=== PATIENT | female | born 1960 | race African-American/Black ===

== ENCOUNTER 2021-02-28 09:03 | Emergency (ER) | payer OTHER, MEDICAID ==
[~2021-02-28] VITALS: Ht 170.2 cm; Wt 145.1 kg
[~2021-02-28 09:03] MED LIST: ALPR1TAB2 PO; ALPR1TAB7 PO; APIX5TAB OR; ATOR10TA52 PO; CARI-277 PO; CLOP75TA28 PO; GABA300C10 PO; HYDR-531 PO; HYDR12.56 PO; HYDR200T36 PO; IPRAAER6 IN; LEVO175T66 PO; LISI-716 PO; OMEP20TA PO; POTA-220 PO; ZOLP5TAB PO
[2021-02-28 10:00] VITALS: BP 125/83
[2021-02-28] MEDS ORDERED: HYDROcodone-ACET 7.5/325MG TAB PO ONE (10:45)
== END 2021-02-28 10:57 | disposition home or self-care (01) ==
LOC: ER 09:03
DX: S83.91XA Sprain of unspecified site of right knee, initial encounter (principal); M17.11 Unilateral primary osteoarthritis, right knee; I11.0 Hypertensive heart disease with heart failure; I50.9 Heart failure, unspecified; I48.91 Unspecified atrial fibrillation; I25.10 Atherosclerotic heart disease of native coronary artery without angina pectoris; J44.9 Chronic obstructive pulmonary disease, unspecified; E78.5 Hyperlipidemia, unspecified; E03.9 Hypothyroidism, unspecified; F17.210 Nicotine dependence, cigarettes, uncomplicated; Z86.73 Personal history of transient ischemic attack (TIA), and cerebral infarction without residual deficits; Z90.49 Acquired absence of other specified parts of digestive tract; Z79.899 Other long term (current) drug therapy; Z88.8 Allergy status to other drugs, medicaments and biological substances; W01.0XXA Fall on same level from slipping, tripping and stumbling without subsequent striking against object, initial encounter; Y93.89 Activity, other specified; Y92.89 Other specified places as the place of occurrence of the external cause; Y99.8 Other external cause status
CPT/HCPCS: 73562

== ENCOUNTER 2021-11-23 12:36 | Inpatient (IN) | payer OTHER, MEDICAID ==
[~2021-11-23] VITALS: Ht 170.2 cm; Wt 138.6 kg
[2021-11-23 13:49] LABS: Hemoglobin 9.9 g/dL (12.2-16.2)
[2021-11-23 13:51] LABS: Hematocrit 30.6 % (36.0-46.0); Mean Corpuscular Hemoglobin 33.2 pg (28.0-32.0); Mean Corpuscular Hgb Conc. 32.4 g/dL (32.0-36.0); Mean Corpuscular Volume 102.5 fL (80.0-100.0); Red Blood Cells 2.99 10^6/uL (4.0-5.20); Red Cell Distribution Width 14.8 % (11.8-14.3)
[2021-11-23 13:55] LABS: White Blood Cell 1.9 10^3/uL (4.4-10.8)
[2021-11-23 13:56] LABS: Band Neutrophils % (manual) 0; Basophils % (manual) 0 (0.0-2.0); Blast Cells 0; Metamyelocytes % 0; Myelocytes % 0; Promyelocytes % 0; Reactive Lymphocytes 0
[2021-11-23 14:23] LABS: BUN/Creatinine Ratio 9.2; Calcium 8.7 mg/dL (8.5-10.1); Potassium 3.4 mmol/L (3.5-5.1)
[2021-11-23 14:25] LABS: Bilirubin, Total 0.2 mg/dL (0.2-1.0); Eosinophils % (manual) 4 (0-7); Lymphocytes % (manual) 32 (10.0-50.0); Monocytes % (manual) 12 (0-12); Total Protein 7.7 g/dL (6.4-8.2)
[2021-11-23] MEDS ORDERED: MORPHINE SULFATE 4 MG/ML SYR/VIAL IV ONE (15:30)
[2021-11-23] MEDS ORDERED: NITROGLYCERIN 0.4 MG SL TAB SL PRN (16:30)
[2021-11-23] MEDS ORDERED: MORPHINE SULFATE INJ 2 MG/ml SYRG IV PRN (16:30)
[2021-11-23] MEDS ORDERED: HYDROcodone-ACET 5/325MG TAB PO PRN (16:30)
[2021-11-23] MEDS: SODIUM CHLORIDE 0.9% 1,000 ML IV SCH (17:03)
[2021-11-23] MEDS: GABAPENTIN 300 MG CAP PO SCH (21:07)
[2021-11-23] MEDS: hydrOXYchloroQUINE SULFATE 200 MG TAB PO SCH (21:07)
[2021-11-23] MEDS: CARISOPRODOL 350 MG TAB PO SCH (21:08)
[2021-11-23 21:35] VITALS: BP 104/64
[2021-11-23] MEDS ORDERED: ALPRAZOLAM 1 MG PO SCH (22:00)
[2021-11-23] MEDS ORDERED: PATIENTS OWN MEDICATION (Atorvastatin Calcium 40 MG) PO SCH (22:00)
[2021-11-23] MEDS: MORPHINE SULFATE INJ 2 MG/ml SYRG IV PRN (22:02)
[2021-11-23 22:07] VITALS: BP 129/83
[2021-11-23] MEDS: ACETAMINOPHEN 325 MG TAB PO PRN (22:12)
[2021-11-24] MEDS: SODIUM CHLORIDE 0.9% 1,000 ML IV SCH ×3 (01:44→17:30)
[2021-11-24] MEDS: MORPHINE SULFATE INJ 2 MG/ml SYRG IV PRN ×3 (02:38→11:52)
[2021-11-24 05:13] VITALS: BP 105/62
[2021-11-24] MEDS: GABAPENTIN 300 MG CAP PO SCH ×3 (05:17→21:31)
[2021-11-24] MEDS: CARISOPRODOL 350 MG TAB PO SCH ×3 (05:17→21:31)
[2021-11-24 08:17] LABS: Basophils # (auto) 0 10 ^3/uL (0-0.2); Eosinophils # (auto) 0 10 ^3/uL (0-0.8); Hemoglobin 8.9 g/dL (12.2-16.2); Lymphocytes # (auto) 0.7 10 ^3/uL (0.4-5.4); Mean Corpuscular Hemoglobin 33.8 pg (28.0-32.0); Monocytes # (auto) 0.2 10 ^3/uL (0-1.3); Neutrophils # (auto) 1.1 10 ^3/uL (1.6-8.6); Nucleated Red Blood Cells % 0.2 %; Red Blood Cells 2.63 10^6/uL (4.0-5.20)
[2021-11-24 08:21] LABS: Basophils % (auto) 0.4 % (0.0-2.0); Eosinophils % (auto) 0.1 % (0.0-7.0); Hematocrit 27.2 % (36.0-46.0); Lymphocytes % (auto) 33.1 % (10.0-50.0); Mean Corpuscular Hgb Conc. 32.8 g/dL (32.0-36.0); Mean Corpuscular Volume 103.3 fL (80.0-100.0); Monocytes % (auto) 10.9 % (0.0-12.0); Neutrophils % (auto) 55.5 % (37.0-80.0)
[2021-11-24 08:40] VITALS: BP 96/55
[2021-11-24 09:10] LABS: Albumin 3.4 g/dL (3.4-5.0); BUN/Creatinine Ratio 9.3; Calcium 8.1 mg/dL (8.5-10.1); Potassium 3.4 mmol/L (3.5-5.1)
[2021-11-24 09:12] LABS: Bilirubin, Total 0.2 mg/dL (0.2-1.0)
[2021-11-24] MEDS: CLOPIDOGREL BISULFATE 75 MG TAB PO SCH (09:54)
[2021-11-24] MEDS: PANTOPRAZOLE 40 MG TAB PO SCH (09:55)
[2021-11-24] MEDS: APIXABAN 5 MG TAB PO SCH (09:55)
[2021-11-24] MEDS: LISINOPRIL 10 MG TAB PO SCH (09:56)
[2021-11-24] MEDS: hydrOXYchloroQUINE SULFATE 200 MG TAB PO SCH ×2 (09:57→21:31)
[2021-11-24] MEDS ORDERED: ENOXAPARIN SOD 40 MG/0.4 ML SYRINGE SC SCH ×2 (10:00)
[2021-11-24] MEDS ORDERED: PATIENTS OWN MEDICATION (Omeprazole (Gnp Omeprazole) 1 TAB) PO SCH (10:00)
[2021-11-24] MEDS ORDERED: PATIENTS OWN MEDICATION (Clopidogrel Bisulfate (Plavix) 75 MG) PO SCH (10:00)
[2021-11-24 12:12] VITALS: BP 104/64
[2021-11-24] MEDS: ONDANSETRON HCL 4 MG/2 ML VIAL IV PRN (13:48)
[2021-11-24] MEDS: cefTRIAXone 1GM/50ML D5W 50 ML IV SCH (15:07)
[2021-11-24] MEDS: AZITHROMYCIN 500MG/ 250ML 250 ML IV SCH (15:08)
[2021-11-24] MEDS: HYDROmorphone HCL 2 MG/ML VL/or syr IV PRN ×2 (15:09→20:34)
[2021-11-24 16:29] VITALS: BP 124/76
[2021-11-24] MEDS: ALPRAZolam 0.5 MG TAB PO SCH (21:30)
[2021-11-24] MEDS: ATORVASTATIN 20 MG TAB PO SCH (21:31)
[2021-11-24 22:00] VITALS: BP 118/74
[2021-11-25] MEDS: SODIUM CHLORIDE 0.9% 1,000 ML IV SCH ×4 (01:50→19:46)
[2021-11-25] MEDS: HYDROmorphone HCL 2 MG/ML VL/or syr IV PRN ×5 (04:44→20:34)
[2021-11-25 05:00] VITALS: BP 114/69
[2021-11-25] MEDS: CARISOPRODOL 350 MG TAB PO SCH ×3 (05:39→22:18)
[2021-11-25] MEDS: GABAPENTIN 300 MG CAP PO SCH ×3 (05:39→22:17)
[2021-11-25] MEDS: LEVOTHYROXINE SODIUM 50 MCG TAB PO SCH (07:23)
[2021-11-25] MEDS: cefTRIAXone 1GM/50ML D5W 50 ML IV SCH (08:24)
[2021-11-25 09:00] VITALS: BP 105/68
[2021-11-25] MEDS: AZITHROMYCIN 500MG/ 250ML 250 ML IV SCH (09:43)
[2021-11-25] MEDS: hydrOXYchloroQUINE SULFATE 200 MG TAB PO SCH ×2 (09:43→22:18)
[2021-11-25] MEDS: APIXABAN 5 MG TAB PO SCH (09:43)
[2021-11-25] MEDS: PANTOPRAZOLE 40 MG TAB PO SCH (09:44)
[2021-11-25] MEDS: CLOPIDOGREL BISULFATE 75 MG TAB PO SCH (09:44)
[2021-11-25] MEDS: LISINOPRIL 10 MG TAB PO SCH (09:46)
[2021-11-25] MEDS ORDERED: CYANOCOBALAMIN (B-12) 1000 MCG/1 ML VIAL SUBCUT ONE (11:15)
[2021-11-25 13:00] VITALS: BP 111/81
[2021-11-25] MEDS: ONDANSETRON HCL 4 MG/2 ML VIAL IV PRN (13:28)
[2021-11-25 17:00] VITALS: BP 127/86
[2021-11-25 20:00] VITALS: BP 105/68
[2021-11-25 22:00] VITALS: BP 118/74
[2021-11-25] MEDS: ATORVASTATIN 20 MG TAB PO SCH (22:17)
[2021-11-25] MEDS: ALPRAZolam 0.5 MG TAB PO SCH (22:18)
[2021-11-26] VITALS (7 sets, daily range): BP systolic 108–133; BP diastolic 69–87
[2021-11-26] MEDS: HYDROmorphone HCL 2 MG/ML VL/or syr IV PRN ×6 (00:40→21:14)
[2021-11-26] MEDS: CARISOPRODOL 350 MG TAB PO SCH ×3 (06:46→22:15)
[2021-11-26] MEDS: GABAPENTIN 300 MG CAP PO SCH ×3 (06:46→22:15)
[2021-11-26] MEDS: LEVOTHYROXINE SODIUM 50 MCG TAB PO SCH (06:47)
[2021-11-26] MEDS: CLOPIDOGREL BISULFATE 75 MG TAB PO SCH (10:14)
[2021-11-26] MEDS: LISINOPRIL 10 MG TAB PO SCH (10:15)
[2021-11-26] MEDS: PANTOPRAZOLE 40 MG TAB PO SCH (10:15)
[2021-11-26] MEDS: APIXABAN 5 MG TAB PO SCH (10:16)
[2021-11-26] MEDS: AZITHROMYCIN 500MG/ 250ML 250 ML IV SCH (10:16)
[2021-11-26] MEDS: hydrOXYchloroQUINE SULFATE 200 MG TAB PO SCH ×2 (10:16→22:15)
[2021-11-26] MEDS: cefTRIAXone 1GM/50ML D5W 50 ML IV SCH (10:17)
[2021-11-26 10:33] LABS: BUN/Creatinine Ratio 7.5; Calcium 8.3 mg/dL (8.5-10.1); Potassium 3.8 mmol/L (3.5-5.1)
[2021-11-26 11:46] LABS: Basophils # (auto) 0 10 ^3/uL (0-0.2); Eosinophils # (auto) 0 10 ^3/uL (0-0.8); Hemoglobin 9.5 g/dL (12.2-16.2); Mean Corpuscular Volume 102.2 fL (80.0-100.0); Monocytes # (auto) 0.2 10 ^3/uL (0-1.3); Red Cell Distribution Width 15.1 % (11.8-14.3)
[2021-11-26 11:50] LABS: Basophils % (auto) 0.1 % (0.0-2.0); Eosinophils % (auto) 0.1 % (0.0-7.0); Hematocrit 29.4 % (36.0-46.0); Lymphocytes # (auto) 0.6 10 ^3/uL (0.4-5.4); Lymphocytes % (auto) 26.6 % (10.0-50.0); Mean Corpuscular Hemoglobin 32.9 pg (28.0-32.0); Mean Corpuscular Hgb Conc. 32.2 g/dL (32.0-36.0); Monocytes % (auto) 7.6 % (0.0-12.0); Neutrophils # (auto) 1.6 10 ^3/uL (1.6-8.6); Neutrophils % (auto) 65.6 % (37.0-80.0); Nucleated Red Blood Cells % 0.1 %; Red Blood Cells 2.88 10^6/uL (4.0-5.20); White Blood Cell 2.4 10^3/uL (4.4-10.8)
[2021-11-26] MEDS: SODIUM CHLORIDE 0.9% 1,000 ML IV SCH ×2 (12:24→19:30)
[2021-11-26] MEDS: ACETAMINOPHEN 325 MG TAB PO PRN (17:53)
[2021-11-26] MEDS: ATORVASTATIN 20 MG TAB PO SCH (22:14)
[2021-11-26] MEDS: ALPRAZolam 0.5 MG TAB PO SCH (22:15)
[2021-11-27] MEDS: HYDROmorphone HCL 2 MG/ML VL/or syr IV PRN ×6 (02:55→21:58)
[2021-11-27] MEDS: SODIUM CHLORIDE 0.9% 1,000 ML IV SCH ×2 (03:08→12:11)
[2021-11-27 05:14] VITALS: BP 109/77
[2021-11-27] MEDS: CARISOPRODOL 350 MG TAB PO SCH ×3 (05:56→20:57)
[2021-11-27] MEDS: GABAPENTIN 300 MG CAP PO SCH ×3 (05:56→20:58)
[2021-11-27 06:15] LABS: Basophils # (auto) 0 10 ^3/uL (0-0.2); Basophils % (auto) 0.5 % (0.0-2.0); Eosinophils # (auto) 0 10 ^3/uL (0-0.8); Hematocrit 27.8 % (36.0-46.0); Hemoglobin 9.3 g/dL (12.2-16.2); Lymphocytes # (auto) 0.6 10 ^3/uL (0.4-5.4); Lymphocytes % (auto) 22.5 % (10.0-50.0); Mean Corpuscular Hemoglobin 33.5 pg (28.0-32.0); Mean Corpuscular Hgb Conc. 33.3 g/dL (32.0-36.0); Mean Corpuscular Volume 100.5 fL (80.0-100.0); Monocytes # (auto) 0.3 10 ^3/uL (0-1.3); Monocytes % (auto) 10.3 % (0.0-12.0); Neutrophils # (auto) 1.6 10 ^3/uL (1.6-8.6); Neutrophils % (auto) 66.7 % (37.0-80.0); Nucleated Red Blood Cells % 0.4 %; Red Blood Cells 2.77 10^6/uL (4.0-5.20); Red Cell Distribution Width 15.2 % (11.8-14.3); White Blood Cell 2.5 10^3/uL (4.4-10.8)
[2021-11-27 06:18] LABS: Calcium 8.5 mg/dL (8.5-10.1); Magnesium 2.4 mg/dL (1.6-2.6)
[2021-11-27] MEDS: ONDANSETRON HCL 4 MG/2 ML VIAL IV PRN ×3 (06:35→20:57)
[2021-11-27] MEDS: LEVOTHYROXINE SODIUM 50 MCG TAB PO SCH (06:35)
[2021-11-27 08:00] VITALS: BP 119/73
[2021-11-27] MEDS: cefTRIAXone 1GM/50ML D5W 50 ML IV SCH (08:49)
[2021-11-27] MEDS: AZITHROMYCIN 500MG/ 250ML 250 ML IV SCH (10:26)
[2021-11-27] MEDS: APIXABAN 5 MG TAB PO SCH (10:26)
[2021-11-27] MEDS: CLOPIDOGREL BISULFATE 75 MG TAB PO SCH (10:26)
[2021-11-27] MEDS: hydrOXYchloroQUINE SULFATE 200 MG TAB PO SCH ×2 (10:26→20:58)
[2021-11-27] MEDS: PANTOPRAZOLE 40 MG TAB PO SCH (10:27)
[2021-11-27] MEDS: LISINOPRIL 10 MG TAB PO SCH (10:27)
[2021-11-27 13:00] VITALS: BP 117/76
[2021-11-27] MEDS ORDERED: LOPERAMIDE HCL 2 MG CAP/TAB PO PRN (14:45)
[2021-11-27] MEDS: OXYCODONE W/ ACETAMINOPHEN 5/325MG TABLET PO PRN (15:38)
[2021-11-27 16:50] VITALS: BP 122/77
[2021-11-27 20:00] VITALS: BP 100/60
[2021-11-27] MEDS: ATORVASTATIN 20 MG TAB PO SCH (20:58)
[2021-11-27] MEDS: ALPRAZolam 0.5 MG TAB PO SCH (20:58)
[2021-11-27 22:00] VITALS: BP 100/60
[2021-11-27] MEDS: CHOLESTYRAMINE 4 GM POWDER PO SCH (23:50)
[2021-11-28 05:00] VITALS: BP 101/63
[2021-11-28] MEDS: HYDROmorphone HCL 2 MG/ML VL/or syr IV PRN (05:09)
[2021-11-28] MEDS: SODIUM CHLORIDE 0.9% 1,000 ML IV SCH ×2 (06:16→10:34)
[2021-11-28] MEDS: GABAPENTIN 300 MG CAP PO SCH (06:17)
[2021-11-28] MEDS: CARISOPRODOL 350 MG TAB PO SCH (06:17)
[2021-11-28] MEDS: LEVOTHYROXINE SODIUM 50 MCG TAB PO SCH (06:17)
[2021-11-28] MEDS: OXYCODONE W/ ACETAMINOPHEN 5/325MG TABLET PO PRN (08:30)
[2021-11-28 09:00] VITALS: BP 92/64
[2021-11-28] MEDS: cefTRIAXone 1GM/50ML D5W 50 ML IV SCH (10:34)
[2021-11-28] MEDS: APIXABAN 5 MG TAB PO SCH (10:34)
[2021-11-28] MEDS: hydrOXYchloroQUINE SULFATE 200 MG TAB PO SCH (10:34)
[2021-11-28] MEDS: PANTOPRAZOLE 40 MG TAB PO SCH (10:35)
[2021-11-28] MEDS: LISINOPRIL 10 MG TAB PO SCH (10:35)
[2021-11-28] MEDS: CLOPIDOGREL BISULFATE 75 MG TAB PO SCH (10:35)
[2021-11-28] MEDS: CHOLESTYRAMINE 4 GM POWDER PO SCH (11:00)
[2021-11-28] MEDS ORDERED: OXYCODONE W/ ACETAMINOPHEN 5/325MG TABLET PO ONE (11:30)
[2021-11-28] MEDS: AZITHROMYCIN 500MG/ 250ML 250 ML IV SCH (11:30)
[2021-11-28 12:34] VITALS: BP 111/70
[2021-11-28 13:00] VITALS: BP 119/82
[2021-11-28 13:05] VITALS: BP 111/70
[2021-11-28] MEDS ORDERED: PANT40TA2 PO (15:57)
== END 2021-11-28 13:17 | disposition home or self-care (01) | DRG 177 ==
LOC: ER 12:36 → TELE 16:31 → TELE-EAST 21:30
PROVIDERS: ADMIT Internal Medicine; ATTEND Internal Medicine
DX: U07.1 COVID-19 (principal); J12.82 Pneumonia due to coronavirus disease 2019; J96.21 Acute and chronic respiratory failure with hypoxia; N17.9 Acute kidney failure, unspecified; Z68.42 Body mass index [BMI] 45.0-49.9, adult; J44.0 Chronic obstructive pulmonary disease with (acute) lower respiratory infection; E78.5 Hyperlipidemia, unspecified; E66.9 Obesity, unspecified; J44.9 Chronic obstructive pulmonary disease, unspecified; I50.9 Heart failure, unspecified; D64.9 Anemia, unspecified; M32.9 Systemic lupus erythematosus, unspecified; M06.9 Rheumatoid arthritis, unspecified; Z88.8 Allergy status to other drugs, medicaments and biological substances; E66.01 Morbid (severe) obesity due to excess calories; G89.4 Chronic pain syndrome; I11.0 Hypertensive heart disease with heart failure; E11.42 Type 2 diabetes mellitus with diabetic polyneuropathy; F17.210 Nicotine dependence, cigarettes, uncomplicated; I25.10 Atherosclerotic heart disease of native coronary artery without angina pectoris; I48.91 Unspecified atrial fibrillation; M79.7 Fibromyalgia; Z82.49 Family history of ischemic heart disease and other diseases of the circulatory system; Z86.73 Personal history of transient ischemic attack (TIA), and cerebral infarction without residual deficits; Z95.5 Presence of coronary angioplasty implant and graft; Z99.81 Dependence on supplemental oxygen; Z90.49 Acquired absence of other specified parts of digestive tract
CPT/HCPCS: 36415; 71045; 80048; 80053; 83735; 84484; 85007; 85025; 85027; 87493; 93005; 93306; 94760; 96361; 96374; G0378; J0696; J2405

== ENCOUNTER 2022-05-30 14:40 | Inpatient (IN) | payer OTHER, MEDICAID ==
[~2022-05-30] VITALS: Ht 170.2 cm; Wt 125.3 kg
[~2022-05-30 14:40] MED LIST changes: -OMEP20TA PO; +PANT40TA2 PO
[2022-05-30 15:20] LABS: Basophils # (auto) 0 10 ^3/uL (0-0.2); Basophils % (auto) 0.3 % (0.0-2.0); Eosinophils # (auto) 0 10 ^3/uL (0-0.8); Eosinophils % (auto) 0.2 % (0.0-7.0); Hematocrit 30.6 % (36.0-46.0); Hemoglobin 10.2 g/dL (12.2-16.2); Lymphocytes # (auto) 0.5 10 ^3/uL (0.4-5.4); Lymphocytes % (auto) 18.7 % (10.0-50.0); Mean Corpuscular Hemoglobin 33.4 pg (28.0-32.0); Mean Corpuscular Hgb Conc. 33.5 g/dL (32.0-36.0); Mean Corpuscular Volume 99.6 fL (80.0-100.0); Monocytes # (auto) 0.2 10 ^3/uL (0-1.3); Monocytes % (auto) 7.1 % (0.0-12.0); Neutrophils # (auto) 2.1 10 ^3/uL (1.6-8.6); Neutrophils % (auto) 73.7 % (37.0-80.0); Nucleated Red Blood Cells % 0.1 %; Red Blood Cells 3.07 10^6/uL (4.0-5.20); Red Cell Distribution Width 16.6 % (11.8-14.3); White Blood Cell 2.9 10^3/uL (4.4-10.8)
[2022-05-30 15:39] LABS: Albumin 4.2 g/dL (3.4-5.0); Calcium 8.9 mg/dL (8.5-10.1); Potassium 3.8 mmol/L (3.5-5.1)
[2022-05-30 15:43] LABS: BUN/Creatinine Ratio 14.5; Bilirubin, Total 0.3 mg/dL (0.2-1.0); Total Protein 7.4 g/dL (6.4-8.2)
[2022-05-30] MEDS ORDERED: METOCLOPRAMIDE HCL 5MG/ml INJ 2ml VIAL IV ONE (15:45)
[2022-05-30] MEDS ORDERED: SODIUM CHLORIDE 0.9% 1,000 ML IV ONE (15:45)
[2022-05-30] MEDS ORDERED: MORPHINE SULFATE 4 MG/ML SYR/VIAL IV ONE (15:45)
[2022-05-30 16:17] LABS: INR 0.97 (0.9-1.15); Partial Thromboplastin Time 29.6 sec (24.6-33.4)
[2022-05-30 19:45] LABS: Urine Bacteria FEW /hpf (None Seen); Urine Blood Negative /uL (Negative); Urine Specific Gravity 1.031 (1.001-1.035); Urine WBC 3 /hpf (0 - 5)
[2022-05-30] MEDS ORDERED: SODIUM CHLORIDE 0.9% 1,000 ML IV SCH (21:00)
[2022-05-30] MEDS ORDERED: ACETAMINOPHEN 325 MG TAB PO PRN (21:00)
[2022-05-30] MEDS ORDERED: NITROGLYCERIN 0.4 MG SL TAB SL PRN (21:00)
[2022-05-30] MEDS ORDERED: ASPI-325 PO (21:36)
[2022-05-30] MEDS: ATORVASTATIN 20 MG TAB PO SCH (22:08)
[2022-05-30] MEDS: CARISOPRODOL 350 MG TAB PO SCH (22:08)
[2022-05-31] MEDS: HYDROcodone-ACET 5/325MG TAB PO PRN ×2 (01:16→11:24)
[2022-05-31] MEDS: ONDANSETRON HCL 4 MG/2 ML VIAL IV PRN ×4 (02:13→22:38)
[2022-05-31] MEDS: MORPHINE SULFATE INJ 2 MG/ml SYRG IV PRN ×6 (02:13→22:36)
[2022-05-31] MEDS: CARISOPRODOL 350 MG TAB PO SCH ×3 (06:07→22:45)
[2022-05-31 06:19] LABS: Basophils # (auto) 0 10 ^3/uL (0-0.2); Basophils % (auto) 0.4 % (0.0-2.0); Eosinophils # (auto) 0 10 ^3/uL (0-0.8); Eosinophils % (auto) 0.3 % (0.0-7.0); Hematocrit 28.9 % (36.0-46.0); Hemoglobin 9.6 g/dL (12.2-16.2); Lymphocytes # (auto) 0.8 10 ^3/uL (0.4-5.4); Lymphocytes % (auto) 27.1 % (10.0-50.0); Mean Corpuscular Hemoglobin 32.7 pg (28.0-32.0); Mean Corpuscular Hgb Conc. 33.1 g/dL (32.0-36.0); Mean Corpuscular Volume 98.6 fL (80.0-100.0); Monocytes # (auto) 0.2 10 ^3/uL (0-1.3); Monocytes % (auto) 6.9 % (0.0-12.0); Neutrophils # (auto) 1.8 10 ^3/uL (1.6-8.6); Neutrophils % (auto) 65.3 % (37.0-80.0); Red Blood Cells 2.93 10^6/uL (4.0-5.20); Red Cell Distribution Width 16.8 % (11.8-14.3); White Blood Cell 2.8 10^3/uL (4.4-10.8)
[2022-05-31 06:26] LABS: Potassium 3.5 mmol/L (3.5-5.1)
[2022-05-31 06:32] LABS: Albumin 3.5 g/dL (3.4-5.0); BUN/Creatinine Ratio 13.6; Bilirubin, Total 0.3 mg/dL (0.2-1.0); Calcium 9.3 mg/dL (8.5-10.1); Total Protein 6.8 g/dL (6.4-8.2)
[2022-05-31] MEDS: LEVOTHYROXINE SODIUM 50 MCG TAB PO SCH (06:44)
[2022-05-31] MEDS ORDERED: HCTZ 25 MG TAB PO SCH (10:00)
[2022-05-31] MEDS: PANTOPRAZOLE 40 MG/10 ML VIAL INJ IV SCH (10:09)
[2022-05-31] MEDS: ASPirin-EC 81 mg tab PO SCH (10:09)
[2022-05-31] MEDS: CLOPIDOGREL BISULFATE 75 MG TAB PO SCH (10:09)
[2022-05-31] MEDS: LISINOPRIL 10 MG TAB PO SCH (10:10)
[2022-05-31] MEDS ORDERED: ENOXAPARIN SOD 40 MG/0.4 ML SYRINGE SC ONE (11:30)
[2022-05-31] MEDS ORDERED: amLODIPine BESYLATE 5 MG TAB PO ONE (16:45)
[2022-05-31] MEDS ORDERED: cloNIDine HCL 0.1 MG TAB PO ONE (16:45)
[2022-05-31] MEDS: ATORVASTATIN 20 MG TAB PO SCH (22:44)
[2022-06-01] MEDS: HYDROcodone-ACET 5/325MG TAB PO PRN ×4 (00:13→19:55)
[2022-06-01 00:17] VITALS: BP 124/87
[2022-06-01] MEDS: ONDANSETRON HCL 4 MG/2 ML VIAL IV PRN ×3 (03:07→16:01)
[2022-06-01] MEDS: MORPHINE SULFATE INJ 2 MG/ml SYRG IV PRN ×5 (03:07→21:35)
[2022-06-01 05:00] VITALS: BP 114/62
[2022-06-01 06:24] LABS: Basophils # (auto) 0 10 ^3/uL (0-0.2); Basophils % (auto) 0.2 % (0.0-2.0); Eosinophils # (auto) 0 10 ^3/uL (0-0.8); Eosinophils % (auto) 0.6 % (0.0-7.0); Hematocrit 25.8 % (36.0-46.0); Hemoglobin 8.7 g/dL (12.2-16.2); Lymphocytes # (auto) 0.8 10 ^3/uL (0.4-5.4); Lymphocytes % (auto) 30.9 % (10.0-50.0); Mean Corpuscular Hemoglobin 32.6 pg (28.0-32.0); Mean Corpuscular Hgb Conc. 33.5 g/dL (32.0-36.0); Mean Corpuscular Volume 97.2 fL (80.0-100.0); Monocytes # (auto) 0.2 10 ^3/uL (0-1.3); Monocytes % (auto) 9.2 % (0.0-12.0); Neutrophils # (auto) 1.5 10 ^3/uL (1.6-8.6); Neutrophils % (auto) 59.1 % (37.0-80.0); Nucleated Red Blood Cells % 0.2 %; Red Blood Cells 2.66 10^6/uL (4.0-5.20); Red Cell Distribution Width 16.5 % (11.8-14.3); White Blood Cell 2.5 10^3/uL (4.4-10.8)
[2022-06-01] MEDS: LEVOTHYROXINE SODIUM 50 MCG TAB PO SCH (06:36)
[2022-06-01] MEDS: CARISOPRODOL 350 MG TAB PO SCH ×3 (06:40→20:32)
[2022-06-01 06:44] LABS: Albumin 3.3 g/dL (3.4-5.0); Calcium 8.3 mg/dL (8.5-10.1); Potassium 3.7 mmol/L (3.5-5.1)
[2022-06-01 06:50] LABS: BUN/Creatinine Ratio 14.7; Bilirubin, Total 0.4 mg/dL (0.2-1.0); Total Protein 6.4 g/dL (6.4-8.2)
[2022-06-01 08:56] VITALS: BP 119/68
[2022-06-01] MEDS: ASPirin-EC 81 mg tab PO SCH (10:11)
[2022-06-01] MEDS: PANTOPRAZOLE 40 MG/10 ML VIAL INJ IV SCH (10:11)
[2022-06-01] MEDS: LISINOPRIL 10 MG TAB PO SCH (10:12)
[2022-06-01] MEDS: CLOPIDOGREL BISULFATE 75 MG TAB PO SCH (10:12)
[2022-06-01] MEDS: ENOXAPARIN SOD 40 MG/0.4 ML SYRINGE SC SCH (10:13)
[2022-06-01 13:00] VITALS: BP 101/59
[2022-06-01 17:00] VITALS: BP 144/77
[2022-06-01] MEDS: ATORVASTATIN 20 MG TAB PO SCH (20:32)
[2022-06-01 22:00] VITALS: BP 108/44
[2022-06-02] VITALS (9 sets, daily range): BP systolic 101–182; BP diastolic 56–147
[2022-06-02] MEDS: MORPHINE SULFATE INJ 2 MG/ml SYRG IV PRN ×6 (04:19→21:15)
[2022-06-02] MEDS: CARISOPRODOL 350 MG TAB PO SCH ×3 (05:38→22:10)
[2022-06-02 05:59] LABS: Basophils # (auto) 0 10 ^3/uL (0-0.2); Basophils % (auto) 0.4 % (0.0-2.0); Eosinophils # (auto) 0 10 ^3/uL (0-0.8); Eosinophils % (auto) 0.7 % (0.0-7.0); Hematocrit 25.6 % (36.0-46.0); Hemoglobin 8.8 g/dL (12.2-16.2); Lymphocytes # (auto) 0.9 10 ^3/uL (0.4-5.4); Lymphocytes % (auto) 33.7 % (10.0-50.0); Mean Corpuscular Hemoglobin 33.4 pg (28.0-32.0); Mean Corpuscular Hgb Conc. 34.5 g/dL (32.0-36.0); Mean Corpuscular Volume 96.9 fL (80.0-100.0); Monocytes # (auto) 0.3 10 ^3/uL (0-1.3); Monocytes % (auto) 11.2 % (0.0-12.0); Neutrophils # (auto) 1.4 10 ^3/uL (1.6-8.6); Nucleated Red Blood Cells % 0.2 %; Red Blood Cells 2.64 10^6/uL (4.0-5.20); Red Cell Distribution Width 16.1 % (11.8-14.3); White Blood Cell 2.6 10^3/uL (4.4-10.8)
[2022-06-02] MEDS: LEVOTHYROXINE SODIUM 50 MCG TAB PO SCH (06:10)
[2022-06-02 06:24] LABS: Potassium 3.7 mmol/L (3.5-5.1)
[2022-06-02 06:39] LABS: Albumin 3.4 g/dL (3.4-5.0); BUN/Creatinine Ratio 14.3; Bilirubin, Total 0.3 mg/dL (0.2-1.0); Calcium 8.5 mg/dL (8.5-10.1); Total Protein 6.6 g/dL (6.4-8.2)
[2022-06-02] MEDS: HYDROcodone-ACET 5/325MG TAB PO PRN ×3 (07:50→22:19)
[2022-06-02] MEDS: PANTOPRAZOLE 40 MG/10 ML VIAL INJ IV SCH (08:42)
[2022-06-02] MEDS: CLOPIDOGREL BISULFATE 75 MG TAB PO SCH (08:42)
[2022-06-02] MEDS: ASPirin-EC 81 mg tab PO SCH (08:42)
[2022-06-02] MEDS: LISINOPRIL 10 MG TAB PO SCH (08:43)
[2022-06-02] MEDS: ENOXAPARIN SOD 40 MG/0.4 ML SYRINGE SC SCH (08:47)
[2022-06-02] MEDS ORDERED: ANGIOMAX 250 MG VIAL IV ONE (13:12)
[2022-06-02] MEDS ORDERED: HEPARIN SODIUM (PORCINE) 5000 UNITS/ML 1ML VIAL ONE (13:12)
[2022-06-02] MEDS ORDERED: fentaNYL CITRATE 100 MCG/2 ML VL ONE (13:13)
[2022-06-02] MEDS ORDERED: VERAPAMIL 2.5MG/ML INJ 2ML VIAL IV ONE (13:13)
[2022-06-02] MEDS ORDERED: MIDAZOLAM HCL 2MG/2ML 2ml VIAL (1mg/ml) ONE (13:13)
[2022-06-02] MEDS ORDERED: SODIUM CHL 0.9% 0 ML ONE (13:13)
[2022-06-02] MEDS ORDERED: IOHEXOL 350 MG/ML 100ML IJ ONE (13:16)
[2022-06-02] MEDS ORDERED: LIDOCAINE 2%HCL (LOCAL ANESTH.) INJ 10ml MDV ONE ×2 (13:16→13:42)
[2022-06-02] MEDS: ATORVASTATIN 20 MG TAB PO SCH (22:10)
[2022-06-03] MEDS: HYDROcodone-ACET 5/325MG TAB PO PRN ×4 (03:46→21:46)
[2022-06-03 05:00] VITALS: BP 102/56
[2022-06-03] MEDS: CARISOPRODOL 350 MG TAB PO SCH ×3 (06:03→21:46)
[2022-06-03] MEDS: LEVOTHYROXINE SODIUM 50 MCG TAB PO SCH (06:03)
[2022-06-03 06:33] LABS: Potassium 3.8 mmol/L (3.5-5.1)
[2022-06-03 06:40] LABS: Albumin 3.6 g/dL (3.4-5.0); Bilirubin, Total 0.2 mg/dL (0.2-1.0); Calcium 8.8 mg/dL (8.5-10.1); Total Protein 6.9 g/dL (6.4-8.2)
[2022-06-03 06:47] LABS: Basophils # (auto) 0 10 ^3/uL (0-0.2); Basophils % (auto) 0.3 % (0.0-2.0); Eosinophils # (auto) 0 10 ^3/uL (0-0.8); Eosinophils % (auto) 0.8 % (0.0-7.0); Hemoglobin 9.5 g/dL (12.2-16.2); Lymphocytes # (auto) 0.7 10 ^3/uL (0.4-5.4); Lymphocytes % (auto) 26.1 % (10.0-50.0); Mean Corpuscular Hemoglobin 33.8 pg (28.0-32.0); Mean Corpuscular Volume 99.4 fL (80.0-100.0); Monocytes # (auto) 0.3 10 ^3/uL (0-1.3); Monocytes % (auto) 9.3 % (0.0-12.0); Neutrophils # (auto) 1.8 10 ^3/uL (1.6-8.6); Neutrophils % (auto) 63.5 % (37.0-80.0); Nucleated Red Blood Cells % 0.1 %; Red Blood Cells 2.82 10^6/uL (4.0-5.20); Red Cell Distribution Width 16.2 % (11.8-14.3); White Blood Cell 2.8 10^3/uL (4.4-10.8)
[2022-06-03] MEDS: ASPirin-EC 81 mg tab PO SCH (08:17)
[2022-06-03] MEDS: CLOPIDOGREL BISULFATE 75 MG TAB PO SCH (08:17)
[2022-06-03] MEDS: ENOXAPARIN SOD 40 MG/0.4 ML SYRINGE SC SCH (08:17)
[2022-06-03] MEDS: PANTOPRAZOLE 40 MG/10 ML VIAL INJ IV SCH (08:17)
[2022-06-03] MEDS: MORPHINE SULFATE INJ 2 MG/ml SYRG IV PRN ×3 (08:18→17:25)
[2022-06-03 08:42] VITALS: BP 116/97
[2022-06-03] MEDS: LISINOPRIL 10 MG TAB PO SCH (10:00)
[2022-06-03 12:32] VITALS: BP 159/70
[2022-06-03] MEDS: ONDANSETRON HCL 4 MG/2 ML VIAL IV PRN ×2 (13:26→17:24)
[2022-06-03 16:56] VITALS: BP 97/53
[2022-06-03] MEDS: ATORVASTATIN 20 MG TAB PO SCH (21:46)
[2022-06-04] MEDS: HYDROcodone-ACET 5/325MG TAB PO PRN ×3 (01:56→14:40)
[2022-06-04 05:00] VITALS: BP 124/68
[2022-06-04] MEDS: CARISOPRODOL 350 MG TAB PO SCH ×3 (06:00→22:49)
[2022-06-04 06:41] LABS: Basophils # (auto) 0 10 ^3/uL (0-0.2); Basophils % (auto) 0.5 % (0.0-2.0); Eosinophils # (auto) 0 10 ^3/uL (0-0.8); Eosinophils % (auto) 0.8 % (0.0-7.0); Hematocrit 26.2 % (36.0-46.0); Hemoglobin 8.7 g/dL (12.2-16.2); Lymphocytes # (auto) 0.7 10 ^3/uL (0.4-5.4); Lymphocytes % (auto) 31.5 % (10.0-50.0); Mean Corpuscular Hgb Conc. 33.2 g/dL (32.0-36.0); Mean Corpuscular Volume 99.6 fL (80.0-100.0); Monocytes # (auto) 0.2 10 ^3/uL (0-1.3); Monocytes % (auto) 10.5 % (0.0-12.0); Neutrophils # (auto) 1.3 10 ^3/uL (1.6-8.6); Neutrophils % (auto) 56.7 % (37.0-80.0); Nucleated Red Blood Cells % 0.1 %; Red Blood Cells 2.64 10^6/uL (4.0-5.20); White Blood Cell 2.2 10^3/uL (4.4-10.8)
[2022-06-04] MEDS: LEVOTHYROXINE SODIUM 50 MCG TAB PO SCH (06:56)
[2022-06-04 06:57] LABS: Albumin 3.3 g/dL (3.4-5.0); Calcium 8.4 mg/dL (8.5-10.1); Potassium 3.7 mmol/L (3.5-5.1)
[2022-06-04 07:02] LABS: BUN/Creatinine Ratio 12.7; Bilirubin, Total 0.6 mg/dL (0.2-1.0); Total Protein 6.4 g/dL (6.4-8.2)
[2022-06-04] MEDS ORDERED: CARISOPRODOL 350 MG TAB PO ONE (08:00)
[2022-06-04] MEDS: PANTOPRAZOLE 40 MG/10 ML VIAL INJ IV SCH (08:18)
[2022-06-04] MEDS: ASPirin-EC 81 mg tab PO SCH (08:19)
[2022-06-04] MEDS: ENOXAPARIN SOD 40 MG/0.4 ML SYRINGE SC SCH (08:19)
[2022-06-04] MEDS: CLOPIDOGREL BISULFATE 75 MG TAB PO SCH (08:19)
[2022-06-04] MEDS: MORPHINE SULFATE INJ 2 MG/ml SYRG IV PRN ×3 (08:25→19:03)
[2022-06-04] MEDS ORDERED: LEVOTHYROXINE SODIUM 50 MCG TAB PO SCH (09:30)
[2022-06-04] MEDS: LISINOPRIL 10 MG TAB PO SCH (10:00)
[2022-06-04 13:00] VITALS: BP 126/84
[2022-06-04] MEDS: OXYCODONE W/ ACETAMINOPHEN 5/325MG TABLET PO PRN ×2 (16:57→22:48)
[2022-06-04 20:00] VITALS: BP 140/90
[2022-06-04] MEDS: ATORVASTATIN 20 MG TAB PO SCH (22:48)
[2022-06-04 23:01] VITALS: BP 140/96
[2022-06-05] MEDS: DOCUSATE SOD 100 MG CAP PO PRN ×2 (00:10→21:03)
[2022-06-05] MEDS: MORPHINE SULFATE INJ 2 MG/ml SYRG IV PRN ×3 (04:53→18:02)
[2022-06-05 05:07] VITALS: BP 150/90
[2022-06-05] MEDS: LEVOTHYROXINE SODIUM 50 MCG TAB PO SCH (06:48)
[2022-06-05] MEDS: CARISOPRODOL 350 MG TAB PO SCH ×3 (06:51→21:03)
[2022-06-05] MEDS: OXYCODONE W/ ACETAMINOPHEN 5/325MG TABLET PO PRN ×3 (07:09→21:03)
[2022-06-05 08:00] VITALS: BP 127/80
[2022-06-05 08:13] LABS: Basophils # (auto) 0 10 ^3/uL (0-0.2); Basophils % (auto) 0.5 % (0.0-2.0); Eosinophils # (auto) 0 10 ^3/uL (0-0.8); Eosinophils % (auto) 0.7 % (0.0-7.0); Hematocrit 30.3 % (36.0-46.0); Hemoglobin 9.8 g/dL (12.2-16.2); Lymphocytes % (auto) 33.7 % (10.0-50.0); Mean Corpuscular Hemoglobin 32.1 pg (28.0-32.0); Mean Corpuscular Hgb Conc. 32.5 g/dL (32.0-36.0); Monocytes # (auto) 0.2 10 ^3/uL (0-1.3); Monocytes % (auto) 6.9 % (0.0-12.0); Neutrophils # (auto) 1.6 10 ^3/uL (1.6-8.6); Neutrophils % (auto) 58.2 % (37.0-80.0); Red Blood Cells 3.06 10^6/uL (4.0-5.20); Red Cell Distribution Width 16.4 % (11.8-14.3); White Blood Cell 2.8 10^3/uL (4.4-10.8)
[2022-06-05] MEDS: ASPirin-EC 81 mg tab PO SCH (08:31)
[2022-06-05] MEDS: LISINOPRIL 10 MG TAB PO SCH (08:36)
[2022-06-05] MEDS: ENOXAPARIN SOD 40 MG/0.4 ML SYRINGE SC SCH (08:37)
[2022-06-05 08:49] LABS: Calcium 8.8 mg/dL (8.5-10.1); Potassium 3.9 mmol/L (3.5-5.1)
[2022-06-05 08:55] LABS: Albumin 3.8 g/dL (3.4-5.0); BUN/Creatinine Ratio 12.5; Bilirubin, Total 0.4 mg/dL (0.2-1.0); Total Protein 7.2 g/dL (6.4-8.2)
[2022-06-05 12:52] VITALS: BP 127/80
[2022-06-05 20:00] VITALS: BP 130/90
[2022-06-05] MEDS: ATORVASTATIN 20 MG TAB PO SCH (21:03)
[2022-06-05 22:00] VITALS: BP 130/78
[2022-06-06] VITALS (7 sets, daily range): BP systolic 100–132; BP diastolic 52–79
[2022-06-06] MEDS: MORPHINE SULFATE INJ 2 MG/ml SYRG IV PRN ×4 (02:20→20:58)
[2022-06-06] MEDS: OXYCODONE W/ ACETAMINOPHEN 5/325MG TABLET PO PRN ×3 (05:52→22:08)
[2022-06-06 06:29] LABS: Basophils # (auto) 0 10 ^3/uL (0-0.2); Basophils % (auto) 0.5 % (0.0-2.0); Eosinophils # (auto) 0 10 ^3/uL (0-0.8); Eosinophils % (auto) 0.8 % (0.0-7.0); Hematocrit 28.8 % (36.0-46.0); Hemoglobin 9.3 g/dL (12.2-16.2); Lymphocytes % (auto) 37.7 % (10.0-50.0); Mean Corpuscular Hemoglobin 31.9 pg (28.0-32.0); Mean Corpuscular Hgb Conc. 32.5 g/dL (32.0-36.0); Mean Corpuscular Volume 98.2 fL (80.0-100.0); Monocytes # (auto) 0.3 10 ^3/uL (0-1.3); Monocytes % (auto) 10.3 % (0.0-12.0); Neutrophils # (auto) 1.3 10 ^3/uL (1.6-8.6); Neutrophils % (auto) 50.7 % (37.0-80.0); Nucleated Red Blood Cells % 0.1 %; Red Blood Cells 2.93 10^6/uL (4.0-5.20); White Blood Cell 2.6 10^3/uL (4.4-10.8)
[2022-06-06] MEDS: LEVOTHYROXINE SODIUM 50 MCG TAB PO SCH (06:38)
[2022-06-06] MEDS: CARISOPRODOL 350 MG TAB PO SCH ×3 (06:38→22:09)
[2022-06-06 06:50] LABS: Albumin 3.5 g/dL (3.4-5.0); BUN/Creatinine Ratio 16.4; Calcium 9.2 mg/dL (8.5-10.1); Potassium 3.8 mmol/L (3.5-5.1)
[2022-06-06 06:53] LABS: Bilirubin, Total 0.3 mg/dL (0.2-1.0); Total Protein 6.8 g/dL (6.4-8.2)
[2022-06-06] MEDS: ASPirin-EC 81 mg tab PO SCH (09:45)
[2022-06-06] MEDS: LISINOPRIL 10 MG TAB PO SCH (09:46)
[2022-06-06] MEDS: ENOXAPARIN SOD 40 MG/0.4 ML SYRINGE SC SCH (09:47)
[2022-06-06] MEDS: ATORVASTATIN 20 MG TAB PO SCH (22:07)
[2022-06-07] MEDS: MORPHINE SULFATE INJ 2 MG/ml SYRG IV PRN ×3 (03:43→16:07)
[2022-06-07 05:00] VITALS: BP 119/76
[2022-06-07] MEDS: CARISOPRODOL 350 MG TAB PO SCH ×2 (06:41→13:12)
[2022-06-07] MEDS: LEVOTHYROXINE SODIUM 50 MCG TAB PO SCH (06:41)
[2022-06-07] MEDS: OXYCODONE W/ ACETAMINOPHEN 5/325MG TABLET PO PRN ×2 (06:44→13:12)
[2022-06-07 08:15] VITALS: BP 104/69
[2022-06-07] MEDS: ASPirin-EC 81 mg tab PO SCH (09:19)
[2022-06-07] MEDS: ENOXAPARIN SOD 40 MG/0.4 ML SYRINGE SC SCH (09:20)
[2022-06-07] MEDS: LISINOPRIL 10 MG TAB PO SCH (09:20)
[2022-06-07 11:44] LABS: Basophils # (auto) 0 10 ^3/uL (0-0.2); Eosinophils # (auto) 0 10 ^3/uL (0-0.8); Monocytes # (auto) 0.3 10 ^3/uL (0-1.3); Neutrophils # (auto) 1.2 10 ^3/uL (1.6-8.6); White Blood Cell 2.5 10^3/uL (4.4-10.8)
[2022-06-07 11:48] LABS: Basophils % (auto) 0.5 % (0.0-2.0); Eosinophils % (auto) 0.9 % (0.0-7.0); Hematocrit 31.4 % (36.0-46.0); Hemoglobin 9.8 g/dL (12.2-16.2); Lymphocytes % (auto) 39.5 % (10.0-50.0); Mean Corpuscular Hemoglobin 32.2 pg (28.0-32.0); Mean Corpuscular Hgb Conc. 31.2 g/dL (32.0-36.0); Mean Corpuscular Volume 103.2 fL (80.0-100.0); Monocytes % (auto) 12.2 % (0.0-12.0); Neutrophils % (auto) 46.9 % (37.0-80.0); Nucleated Red Blood Cells % 0.2 %; Red Blood Cells 3.04 10^6/uL (4.0-5.20); Red Cell Distribution Width 16.6 % (11.8-14.3)
[2022-06-07 12:02] LABS: Albumin 3.7 g/dL (3.4-5.0); Calcium 8.9 mg/dL (8.5-10.1); Potassium 3.7 mmol/L (3.5-5.1)
[2022-06-07 12:06] LABS: Bilirubin, Total 0.4 mg/dL (0.2-1.0); Total Protein 7.2 g/dL (6.4-8.2)
[2022-06-07 12:10] VITALS: BP 111/92
[2022-06-07] MEDS ORDERED: MORP1TAB12 PO (12:10)
[2022-06-07 16:07] VITALS: BP 118/68
== END 2022-06-07 16:24 | DRG 287 ==
LOC: ER 14:40 → TELE 21:36 → TELE-WESTW 05-31 21:51
PROVIDERS: ADMIT Nurse Practitioner Family; ATTEND Student in an Organized Health Care Education/Training Program
PROC: 4A023N7 Measurement of Cardiac Sampling and Pressure, Left Heart, Percutaneous Approach (ICD-10-PCS; principal; 2022-06-02)
PROC: B2111ZZ Fluoroscopy of Multiple Coronary Arteries using Low Osmolar Contrast (ICD-10-PCS; 2022-06-02)
PROC: B2151ZZ Fluoroscopy of Left Heart using Low Osmolar Contrast (ICD-10-PCS; 2022-06-02)
DX: I25.10 Atherosclerotic heart disease of native coronary artery without angina pectoris (principal); I13.0 Hypertensive heart and chronic kidney disease with heart failure and stage 1 through stage 4 chronic kidney disease, or unspecified chronic kidney disease; Z68.41 Body mass index [BMI] 40.0-44.9, adult; I69.354 Hemiplegia and hemiparesis following cerebral infarction affecting left non-dominant side; E03.9 Hypothyroidism, unspecified; Z20.822 Contact with and (suspected) exposure to COVID-19; D63.8 Anemia in other chronic diseases classified elsewhere; E78.5 Hyperlipidemia, unspecified; I50.9 Heart failure, unspecified; N18.9 Chronic kidney disease, unspecified; M32.9 Systemic lupus erythematosus, unspecified; M06.9 Rheumatoid arthritis, unspecified; D64.89 Other specified anemias; F17.210 Nicotine dependence, cigarettes, uncomplicated; J44.9 Chronic obstructive pulmonary disease, unspecified; M32.14 Glomerular disease in systemic lupus erythematosus; E66.01 Morbid (severe) obesity due to excess calories; G89.4 Chronic pain syndrome; I48.0 Paroxysmal atrial fibrillation; M79.7 Fibromyalgia; Z79.02 Long term (current) use of antithrombotics/antiplatelets; Z79.82 Long term (current) use of aspirin; Z79.899 Other long term (current) drug therapy; I25.2 Old myocardial infarction; Z82.49 Family history of ischemic heart disease and other diseases of the circulatory system; Z90.49 Acquired absence of other specified parts of digestive tract; Z68.34 Body mass index [BMI] 34.0-34.9, adult
CPT/HCPCS: 36415; 70450; 70551; 71045; 80053; 81001; 83735; 83880; 84443; 84484; 85025; 85379; 85610; 85730; 87426; 93005; 93306; 93458; 96361; 96374; 96375; 97110; 97163; 97530; 99152; C9113; G0378; J2001; J2250; J2405

== ENCOUNTER 2022-07-03 06:15 | Inpatient (IN) | payer OTHER, MEDICAID ==
[~2022-07-03] VITALS: Ht 170.2 cm; Wt 123.7 kg
[~2022-07-03 06:15] MED LIST changes: -APIX5TAB OR; +ASPI-325 PO; +MORP1TAB12 PO
[2022-07-03 08:01] LABS: Basophils # (auto) 0 10 ^3/uL (0-0.2); Basophils % (auto) 0.2 % (0.0-2.0); Eosinophils # (auto) 0 10 ^3/uL (0-0.8); Eosinophils % (auto) 0.2 % (0.0-7.0); Hematocrit 29.4 % (36.0-46.0); Hemoglobin 9.5 g/dL (12.2-16.2); Lymphocytes # (auto) 0.6 10 ^3/uL (0.4-5.4); Mean Corpuscular Hgb Conc. 32.1 g/dL (32.0-36.0); Mean Corpuscular Volume 99.7 fL (80.0-100.0); Monocytes # (auto) 0.3 10 ^3/uL (0-1.3); Monocytes % (auto) 5.8 % (0.0-12.0); Neutrophils # (auto) 4.3 10 ^3/uL (1.6-8.6); Neutrophils % (auto) 81.8 % (37.0-80.0); Red Blood Cells 2.95 10^6/uL (4.0-5.20); White Blood Cell 5.2 10^3/uL (4.4-10.8)
[2022-07-03 08:03] LABS: Albumin 3.4 g/dL (3.4-5.0); BUN/Creatinine Ratio 14.5; Calcium 8.9 mg/dL (8.5-10.1); Magnesium 2.2 mg/dL (1.6-2.6); Potassium 3.7 mmol/L (3.5-5.1)
[2022-07-03 08:05] LABS: Bilirubin, Total 0.2 mg/dL (0.2-1.0); Total Protein 7.7 g/dL (6.4-8.2)
[2022-07-03] MEDS ORDERED: ASPirin 81 mg TAB PO ONE (08:15)
[2022-07-03] MEDS ORDERED: OXYCODONE W/ ACETAMINOPHEN 5/325MG TABLET PO ONE (09:15)
[2022-07-03] MEDS ORDERED: ALBUTEROL SULF 2.5 MG/0.5ML(0.5%) NEB SOLN NEB PRN (09:30)
[2022-07-03] MEDS ORDERED: DOCUSATE SOD 100 MG CAP PO PRN (09:30)
[2022-07-03] MEDS ORDERED: NITROGLYCERIN 0.4 MG SL TAB SL PRN (09:30)
[2022-07-03] MEDS ORDERED: IPRATROPIUM BROM 0.5 MG/2.5ML INH SOL NEB PRN (09:30)
[2022-07-03] MEDS ORDERED: ACETAMINOPHEN 325 MG TAB PO PRN (09:30)
[2022-07-03] MEDS ORDERED: RANO10003 PO (09:41)
[2022-07-03] MEDS ORDERED: LEVO200T7 PO (09:41)
[2022-07-03 09:55] VITALS: BP 126/69
[2022-07-03] MEDS: PANTOPRAZOLE 40 MG/10 ML VIAL INJ IV SCH (10:21)
[2022-07-03] MEDS: MORPHINE SULFATE INJ 2 MG/ml SYRG IV PRN ×4 (10:22→22:15)
[2022-07-03] MEDS: ONDANSETRON HCL 4 MG/2 ML VIAL IV PRN ×3 (10:22→22:10)
[2022-07-03] MEDS: LISINOPRIL 10 MG TAB PO SCH (10:23)
[2022-07-03] MEDS: CLOPIDOGREL BISULFATE 75 MG TAB PO SCH (10:23)
[2022-07-03] MEDS ORDERED: HEPARIN SODIUM (PORCINE) 5000 UNITS/ML 1ML VIAL IV ONE (10:30)
[2022-07-03] MEDS ORDERED: HEPARIN DRIP/D5W 100UNITS/ML 250 ML IV SCH ×2 (10:30→22:15)
[2022-07-03 10:45] LABS: INR 0.94 (0.9-1.15); Partial Thromboplastin Time 30.2 sec (24.6-33.4)
[2022-07-03] MEDS ORDERED: IOHEXOL 350 MG/ML 100ML IJ ONE (12:00)
[2022-07-03] MEDS: SODIUM CHLOR 0.9% PF (SALINE LOCK) 10ML VIAL/SYR IV SCH ×2 (14:07→21:41)
[2022-07-03 14:10] LABS: Urine Bacteria NONE SEEN /hpf (None Seen); Urine Blood Negative /uL (Negative); Urine Specific Gravity 1.029 (1.001-1.035); Urine WBC 2 /hpf (0 - 5)
[2022-07-03] MEDS: CARISOPRODOL 350 MG TAB PO SCH ×2 (14:13→21:41)
[2022-07-03] MEDS: OXYCODONE W/ ACETAMINOPHEN 5/325MG TABLET PO PRN ×2 (15:25→21:01)
[2022-07-03] MEDS ORDERED: ALBUTEROL MEDNEB 2.5 mg/3ml NEB NEB PRN (15:30)
[2022-07-03] MEDS: RANOLAZINE ER 500 MG TAB PO SCH (21:41)
[2022-07-03] MEDS: ATORVASTATIN 20 MG TAB PO SCH (21:41)
[2022-07-03 21:56] LABS: INR 0.97 (0.9-1.15)
[2022-07-03 21:59] LABS: Partial Thromboplastin Time 84.4 sec (24.6-33.4)
[2022-07-04 01:00] VITALS: BP 138/71
[2022-07-04 01:48] LABS: INR 0.97 (0.9-1.15)
[2022-07-04] MEDS: MORPHINE SULFATE INJ 2 MG/ml SYRG IV PRN ×4 (01:49→18:38)
[2022-07-04 01:59] LABS: Partial Thromboplastin Time 75.9 sec (24.6-33.4)
[2022-07-04] MEDS ORDERED: HYDR-4798 PO (02:58)
[2022-07-04] MEDS ORDERED: HEPARIN DRIP/D5W 100UNITS/ML 250 ML IV SCH ×2 (04:00→14:15)
[2022-07-04 05:00] VITALS: BP 122/80
[2022-07-04] MEDS: SODIUM CHLOR 0.9% PF (SALINE LOCK) 10ML VIAL/SYR IV SCH ×3 (05:49→21:33)
[2022-07-04] MEDS: CARISOPRODOL 350 MG TAB PO SCH ×3 (05:50→21:35)
[2022-07-04] MEDS: LEVOTHYROXINE SODIUM 100 MCG TAB PO SCH (05:50)
[2022-07-04 06:27] LABS: Basophils # (auto) 0 10 ^3/uL (0-0.2); Basophils % (auto) 0.7 % (0.0-2.0); Eosinophils # (auto) 0 10 ^3/uL (0-0.8); Eosinophils % (auto) 0.3 % (0.0-7.0); Hemoglobin 8.6 g/dL (12.2-16.2); Lymphocytes # (auto) 0.8 10 ^3/uL (0.4-5.4); Lymphocytes % (auto) 23.2 % (10.0-50.0); Mean Corpuscular Hemoglobin 32.4 pg (28.0-32.0); Mean Corpuscular Volume 98.1 fL (80.0-100.0); Monocytes # (auto) 0.3 10 ^3/uL (0-1.3); Monocytes % (auto) 9.4 % (0.0-12.0); Neutrophils # (auto) 2.3 10 ^3/uL (1.6-8.6); Neutrophils % (auto) 66.4 % (37.0-80.0); Nucleated Red Blood Cells % 0.1 %; Red Blood Cells 2.65 10^6/uL (4.0-5.20); Red Cell Distribution Width 14.8 % (11.8-14.3); White Blood Cell 3.5 10^3/uL (4.4-10.8)
[2022-07-04 06:35] LABS: INR 0.99 (0.9-1.15); Partial Thromboplastin Time 54.4 sec (24.6-33.4)
[2022-07-04 07:19] LABS: Albumin 3.1 g/dL (3.4-5.0); Calcium 8.7 mg/dL (8.5-10.1); Potassium 3.9 mmol/L (3.5-5.1)
[2022-07-04 07:22] LABS: BUN/Creatinine Ratio 12.6; Bilirubin, Total 0.3 mg/dL (0.2-1.0); Total Protein 6.9 g/dL (6.4-8.2)
[2022-07-04] MEDS: OXYCODONE W/ ACETAMINOPHEN 5/325MG TABLET PO PRN ×3 (08:38→21:40)
[2022-07-04] MEDS: LISINOPRIL 10 MG TAB PO SCH (11:00)
[2022-07-04] MEDS: PANTOPRAZOLE 40 MG/10 ML VIAL INJ IV SCH (11:53)
[2022-07-04] MEDS: ASPirin-EC 81 mg tab PO SCH (11:53)
[2022-07-04] MEDS: CLOPIDOGREL BISULFATE 75 MG TAB PO SCH (11:54)
[2022-07-04] MEDS ORDERED: ALBUTEROL MEDNEB 2.5 mg/3ml NEB ONE (11:56)
[2022-07-04] MEDS ORDERED: IPRATROPIUM BROM 0.5 MG/2.5ML INH SOL ONE (11:56)
[2022-07-04] MEDS: RANOLAZINE ER 500 MG TAB PO SCH ×2 (11:56→21:34)
[2022-07-04 13:37] LABS: INR 0.98 (0.9-1.15); Partial Thromboplastin Time 46.3 sec (24.6-33.4)
[2022-07-04 17:00] VITALS: BP 92/59
[2022-07-04 20:33] LABS: INR 0.97 (0.9-1.15); Partial Thromboplastin Time 60.9 sec (24.6-33.4)
[2022-07-04] MEDS: ATORVASTATIN 20 MG TAB PO SCH (21:32)
[2022-07-04 22:00] VITALS: BP 104/58
[2022-07-05 02:08] LABS: Partial Thromboplastin Time 51.2 sec (24.6-33.4)
[2022-07-05] MEDS: MORPHINE SULFATE INJ 2 MG/ml SYRG IV PRN ×3 (03:23→21:55)
[2022-07-05] MEDS: OXYCODONE W/ ACETAMINOPHEN 5/325MG TABLET PO PRN ×4 (03:46→19:32)
[2022-07-05 05:00] VITALS: BP 121/64
[2022-07-05] MEDS: CARISOPRODOL 350 MG TAB PO SCH ×3 (05:06→22:00)
[2022-07-05] MEDS: SODIUM CHLOR 0.9% PF (SALINE LOCK) 10ML VIAL/SYR IV SCH ×3 (05:06→21:53)
[2022-07-05] MEDS: LEVOTHYROXINE SODIUM 100 MCG TAB PO SCH (06:02)
[2022-07-05 08:19] LABS: INR 0.99 (0.9-1.15); Partial Thromboplastin Time 64.1 sec (24.6-33.4)
[2022-07-05] MEDS: ONDANSETRON HCL 4 MG/2 ML VIAL IV PRN (08:22)
[2022-07-05 09:00] VITALS: BP 120/59
[2022-07-05 09:34] LABS: Basophils # (auto) 0 10 ^3/uL (0-0.2); Eosinophils # (auto) 0 10 ^3/uL (0-0.8); Monocytes # (auto) 0.3 10 ^3/uL (0-1.3); Neutrophils # (auto) 1.7 10 ^3/uL (1.6-8.6)
[2022-07-05 09:36] LABS: Basophils % (auto) 0.4 % (0.0-2.0); Eosinophils % (auto) 0.2 % (0.0-7.0); Hematocrit 25.6 % (36.0-46.0); Hemoglobin 8.2 g/dL (12.2-16.2); Lymphocytes % (auto) 31.7 % (10.0-50.0); Mean Corpuscular Hemoglobin 32.1 pg (28.0-32.0); Mean Corpuscular Hgb Conc. 32.1 g/dL (32.0-36.0); Monocytes % (auto) 10.1 % (0.0-12.0); Neutrophils % (auto) 57.6 % (37.0-80.0); Nucleated Red Blood Cells % 0.3 %; Red Blood Cells 2.56 10^6/uL (4.0-5.20); Red Cell Distribution Width 14.7 % (11.8-14.3)
[2022-07-05] MEDS: PANTOPRAZOLE 40 MG/10 ML VIAL INJ IV SCH (12:03)
[2022-07-05] MEDS: LISINOPRIL 10 MG TAB PO SCH (12:05)
[2022-07-05] MEDS: RANOLAZINE ER 500 MG TAB PO SCH ×2 (12:06→21:53)
[2022-07-05] MEDS: CLOPIDOGREL BISULFATE 75 MG TAB PO SCH (12:06)
[2022-07-05] MEDS: ASPirin-EC 81 mg tab PO SCH (12:07)
[2022-07-05 13:00] VITALS: BP 120/61
[2022-07-05 17:00] VITALS: BP 106/61
[2022-07-05] MEDS: ATORVASTATIN 20 MG TAB PO SCH (21:54)
[2022-07-05 22:44] VITALS: BP 100/62
[2022-07-06 05:18] VITALS: BP 99/55
[2022-07-06] MEDS: CARISOPRODOL 350 MG TAB PO SCH (06:00)
[2022-07-06 06:14] LABS: Basophils # (auto) 0 10 ^3/uL (0-0.2); Basophils % (auto) 0.2 % (0.0-2.0); Eosinophils # (auto) 0 10 ^3/uL (0-0.8); Eosinophils % (auto) 0.5 % (0.0-7.0); Hematocrit 26.4 % (36.0-46.0); Hemoglobin 8.7 g/dL (12.2-16.2); Lymphocytes # (auto) 0.8 10 ^3/uL (0.4-5.4); Lymphocytes % (auto) 27.6 % (10.0-50.0); Mean Corpuscular Hemoglobin 32.6 pg (28.0-32.0); Mean Corpuscular Hgb Conc. 33.1 g/dL (32.0-36.0); Mean Corpuscular Volume 98.2 fL (80.0-100.0); Monocytes # (auto) 0.3 10 ^3/uL (0-1.3); Monocytes % (auto) 10.1 % (0.0-12.0); Neutrophils # (auto) 1.9 10 ^3/uL (1.6-8.6); Neutrophils % (auto) 61.6 % (37.0-80.0); Nucleated Red Blood Cells % 0.1 %; Red Blood Cells 2.68 10^6/uL (4.0-5.20); Red Cell Distribution Width 14.3 % (11.8-14.3)
[2022-07-06] MEDS: SODIUM CHLOR 0.9% PF (SALINE LOCK) 10ML VIAL/SYR IV SCH (06:18)
[2022-07-06] MEDS: MORPHINE SULFATE INJ 2 MG/ml SYRG IV PRN (06:19)
[2022-07-06] MEDS: LEVOTHYROXINE SODIUM 100 MCG TAB PO SCH (06:20)
[2022-07-06 08:00] VITALS: BP 105/65
[2022-07-06] MEDS: LISINOPRIL 10 MG TAB PO SCH (10:00)
[2022-07-06] MEDS: RANOLAZINE ER 500 MG TAB PO SCH (10:49)
[2022-07-06] MEDS: PANTOPRAZOLE 40 MG/10 ML VIAL INJ IV SCH (10:49)
[2022-07-06] MEDS: CLOPIDOGREL BISULFATE 75 MG TAB PO SCH (10:49)
[2022-07-06] MEDS: ASPirin-EC 81 mg tab PO SCH (10:49)
[2022-07-06] MEDS: OXYCODONE W/ ACETAMINOPHEN 5/325MG TABLET PO PRN (11:01)
[2022-07-06 12:00] VITALS: BP 105/65
== END 2022-07-06 12:15 | disposition home or self-care (01) | DRG 280 ==
LOC: EDUNIT# 06:15 → ER 06:15 → EDBD 06:15 → UNDOADMIN 09:19 → TELE 09:19 → TELE-WESTW 23:20
PROVIDERS: ADMIT Nurse Practitioner Family; ATTEND Family Medicine
PROC: 05HB33Z Insertion of Infusion Device into Right Basilic Vein, Percutaneous Approach (ICD-10-PCS; principal; 2022-07-03)
PROC: B54MZZA Ultrasonography of Right Upper Extremity Veins, Guidance (ICD-10-PCS; 2022-07-03)
DX: I21.4 Non-ST elevation (NSTEMI) myocardial infarction (principal); I50.33 Acute on chronic diastolic (congestive) heart failure; J44.1 Chronic obstructive pulmonary disease with (acute) exacerbation; E03.9 Hypothyroidism, unspecified; E78.5 Hyperlipidemia, unspecified; I11.0 Hypertensive heart disease with heart failure; M32.9 Systemic lupus erythematosus, unspecified; Z20.822 Contact with and (suspected) exposure to COVID-19; F17.210 Nicotine dependence, cigarettes, uncomplicated; I25.10 Atherosclerotic heart disease of native coronary artery without angina pectoris; I48.91 Unspecified atrial fibrillation; M06.9 Rheumatoid arthritis, unspecified; Z82.49 Family history of ischemic heart disease and other diseases of the circulatory system; Z86.73 Personal history of transient ischemic attack (TIA), and cerebral infarction without residual deficits; Z95.5 Presence of coronary angioplasty implant and graft; Z88.8 Allergy status to other drugs, medicaments and biological substances
CPT/HCPCS: 36415; 71045; 71275; 80053; 81001; 83735; 83880; 84443; 84484; 85025; 85610; 85730; 87426; 93005; 96361; 96365; 96375; 96376; 99291; C9113; G0378; J2405

== ENCOUNTER 2022-07-27 08:14 | Inpatient (IN) | payer OTHER, MEDICAID ==
[~2022-07-27] VITALS: Ht 170.2 cm; Wt 113.5 kg
[~2022-07-27 08:14] MED LIST changes: +HYDR-4798 PO; -HYDR-531 PO; -LEVO175T66 PO; +LEVO200T7 PO; +RANO10003 PO
[2022-07-27] MEDS ORDERED: ASPirin 325 MG TAB PO ONE (08:30)
[2022-07-27 08:33] LABS: Basophils # (auto) 0 10 ^3/uL (0-0.2); Basophils % (auto) 0.4 % (0.0-2.0); Eosinophils # (auto) 0 10 ^3/uL (0-0.8); Eosinophils % (auto) 0.4 % (0.0-7.0); Hematocrit 30.9 % (36.0-46.0); Hemoglobin 10.4 g/dL (12.2-16.2); Lymphocytes # (auto) 0.6 10 ^3/uL (0.4-5.4); Lymphocytes % (auto) 26.2 % (10.0-50.0); Mean Corpuscular Hemoglobin 32.8 pg (28.0-32.0); Mean Corpuscular Hgb Conc. 33.6 g/dL (32.0-36.0); Mean Corpuscular Volume 97.7 fL (80.0-100.0); Monocytes # (auto) 0.2 10 ^3/uL (0-1.3); Monocytes % (auto) 9.4 % (0.0-12.0); Neutrophils # (auto) 1.5 10 ^3/uL (1.6-8.6); Neutrophils % (auto) 63.6 % (37.0-80.0); Red Blood Cells 3.16 10^6/uL (4.0-5.20); Red Cell Distribution Width 15.5 % (11.8-14.3); White Blood Cell 2.4 10^3/uL (4.4-10.8)
[2022-07-27 09:09] LABS: INR 0.97 (0.9-1.15); Partial Thromboplastin Time 31.6 sec (24.6-33.4)
[2022-07-27 09:11] LABS: Albumin 3.7 g/dL (3.4-5.0); Bilirubin, Total 0.2 mg/dL (0.2-1.0); Calcium 9.1 mg/dL (8.5-10.1); Potassium 3.7 mmol/L (3.5-5.1); Total Protein 7.2 g/dL (6.4-8.2)
[2022-07-27] MEDS ORDERED: ENOXAPARIN SOD 120 MG/0.8 ML SYRINGE SC ONE (09:30)
[2022-07-27] MEDS ORDERED: NITROGLYCERIN 0.4 MG SL TAB SL ONE (09:30)
[2022-07-27 10:42] LABS: Cholesterol 167 mg/dL (< 200); Triglycerides 111 mg/dL (< 150)
[2022-07-27 10:45] LABS: HDL Cholesterol 56 mg/dL (40-59); LDL Cholesterol 91 mg/dL (< 100)
[2022-07-27] MEDS ORDERED: ACETAMINOPHEN 325 MG TAB PO PRN (11:00)
[2022-07-27 11:33] LABS: Urine Bacteria NONE SEEN /hpf (None Seen); Urine Blood Negative /uL (Negative); Urine Mucus FEW (None Seen); Urine Specific Gravity 1.026 (1.001-1.035); Urine WBC 8 /hpf (0 - 5)
[2022-07-27 11:51] LABS: Amphetamine Screen, Urine NEGATIVE (NEGATIVE); Barbiturate Scree,Urine NEGATIVE (NEGATIVE); Cannabinoid Screen, Urine POSITIVE (NEGATIVE)
[2022-07-27 12:03] LABS: Alcohol, Urine < 3.0 mg/dL (0-10); Benzodiazephine Screen, Urine NEGATIVE (NEGATIVE); Cocaine Screen, Urine NEGATIVE (NEGATIVE); Opiate Scree,Urine POSITIVE (NEGATIVE); Phencyclidine Screen, Urine NEGATIVE (NEGATIVE)
[2022-07-27] MEDS ORDERED: SODIUM CHLORIDE 0.9% 500 ML IV ONE (13:15)
[2022-07-27] MEDS: HYDROcodone-ACET 5/325MG TAB PO PRN ×2 (13:18→17:42)
[2022-07-27] MEDS: GABAPENTIN 300 MG CAP PO SCH ×2 (13:18→21:51)
[2022-07-27] MEDS: SODIUM CHLORIDE 0.9% 1,000 ML IV SCH ×2 (13:19→23:31)
[2022-07-27] MEDS ORDERED: IOHEXOL 350 MG/ML 100ML IJ ONE ×2 (13:21→20:21)
[2022-07-27] MEDS ORDERED: PANTOPRAZOLE 40 MG/10 ML VIAL INJ IV ONE (13:30)
[2022-07-27] MEDS ORDERED: KETOROLAC TROMETH 30 MG/ML 1ML VIAL IV PRN (15:15)
[2022-07-27] MEDS: CARISOPRODOL 350 MG TAB PO SCH ×2 (15:19→21:52)
[2022-07-27] MEDS ORDERED: CLOPIDOGREL BISULFATE 75 MG TAB PO ONE (16:30)
[2022-07-27] MEDS: ONDANSETRON HCL 4 MG/2 ML VIAL IV PRN (20:15)
[2022-07-27] MEDS: MORPHINE SULFATE INJ 2 MG/ml SYRG IV PRN (20:16)
[2022-07-27] MEDS: ATORVASTATIN 20 MG TAB PO SCH (21:51)
[2022-07-27] MEDS: ALPRAZolam 0.5 MG TAB PO SCH (21:52)
[2022-07-27] MEDS: ENOXAPARIN SOD 120 MG/0.8 ML SYRINGE SC SCH (21:53)
[2022-07-27] MEDS: RANOLAZINE ER 500 MG TAB PO SCH (21:53)
[2022-07-27] MEDS ORDERED: PATIENTS OWN MEDICATION (Ranolazine (Ranolazine ER) 1 TAB) PO SCH (22:00)
[2022-07-28] MEDS: CARISOPRODOL 350 MG TAB PO SCH ×3 (05:39→22:05)
[2022-07-28] MEDS: GABAPENTIN 300 MG CAP PO SCH ×3 (05:39→22:05)
[2022-07-28] MEDS: MORPHINE SULFATE INJ 2 MG/ml SYRG IV PRN ×3 (05:40→19:45)
[2022-07-28] MEDS: ONDANSETRON HCL 4 MG/2 ML VIAL IV PRN ×2 (05:40→11:06)
[2022-07-28] MEDS: LEVOTHYROXINE SODIUM 50 MCG TAB PO SCH (06:11)
[2022-07-28] MEDS: LEVOTHYROXINE SODIUM 25 MCG TAB PO SCH (06:11)
[2022-07-28] MEDS: LEVOTHYROXINE SODIUM 100 MCG TAB PO SCH (06:11)
[2022-07-28 06:34] LABS: Basophils # (auto) 0 10 ^3/uL (0-0.2); Basophils % (auto) 0.5 % (0.0-2.0); Eosinophils # (auto) 0 10 ^3/uL (0-0.8); Eosinophils % (auto) 0.7 % (0.0-7.0); Hematocrit 26.7 % (36.0-46.0); Hemoglobin 8.9 g/dL (12.2-16.2); Lymphocytes # (auto) 0.9 10 ^3/uL (0.4-5.4); Lymphocytes % (auto) 37.3 % (10.0-50.0); Mean Corpuscular Hemoglobin 32.6 pg (28.0-32.0); Mean Corpuscular Hgb Conc. 33.4 g/dL (32.0-36.0); Mean Corpuscular Volume 97.7 fL (80.0-100.0); Monocytes # (auto) 0.2 10 ^3/uL (0-1.3); Neutrophils # (auto) 1.2 10 ^3/uL (1.6-8.6); Neutrophils % (auto) 51.5 % (37.0-80.0); Nucleated Red Blood Cells % 0.2 %; Red Blood Cells 2.73 10^6/uL (4.0-5.20); Red Cell Distribution Width 15.1 % (11.8-14.3); White Blood Cell 2.4 10^3/uL (4.4-10.8)
[2022-07-28 06:57] LABS: Potassium 4.1 mmol/L (3.5-5.1)
[2022-07-28 07:11] LABS: Albumin 2.9 g/dL (3.4-5.0); BUN/Creatinine Ratio 11.5; Bilirubin, Total 0.2 mg/dL (0.2-1.0); Calcium 8.9 mg/dL (8.5-10.1); Total Protein 6.5 g/dL (6.4-8.2)
[2022-07-28] MEDS: SODIUM CHLORIDE 0.9% 1,000 ML IV SCH ×3 (09:15→22:04)
[2022-07-28] MEDS: ASPirin-EC 81 mg tab PO SCH (09:49)
[2022-07-28] MEDS: PANTOPRAZOLE 40 MG/10 ML VIAL INJ IV SCH (09:49)
[2022-07-28] MEDS: RANOLAZINE ER 500 MG TAB PO SCH ×2 (09:50→22:05)
[2022-07-28] MEDS: LISINOPRIL 10 MG TAB PO SCH (09:50)
[2022-07-28] MEDS: CLOPIDOGREL BISULFATE 75 MG TAB PO SCH (09:50)
[2022-07-28] MEDS: HCTZ 25 MG TAB PO SCH (09:51)
[2022-07-28] MEDS: ENOXAPARIN SOD 120 MG/0.8 ML SYRINGE SC SCH ×2 (09:51→22:06)
[2022-07-28] MEDS ORDERED: PATIENTS OWN MEDICATION (Levothyroxine Sodium 1 TAB) PO SCH (10:00)
[2022-07-28] MEDS ORDERED: PATIENTS OWN MEDICATION (Hydrochlorothiazide 1 CAP) PO SCH (10:00)
[2022-07-28] MEDS ORDERED: ENOXAPARIN SOD 40 MG/0.4 ML SYRINGE SC SCH (10:00)
[2022-07-28] MEDS: HYDROcodone-ACET 5/325MG TAB PO PRN (14:10)
[2022-07-28] MEDS ORDERED: hydrALAZINE HCL 20 MG/ML VL IV PRN (20:45)
[2022-07-28] MEDS: ATORVASTATIN 20 MG TAB PO SCH (22:04)
[2022-07-28] MEDS: ALPRAZolam 0.5 MG TAB PO SCH (22:06)
[2022-07-29] MEDS: MORPHINE SULFATE INJ 2 MG/ml SYRG IV PRN ×3 (04:49→16:20)
[2022-07-29 05:00] VITALS: BP 114/55
[2022-07-29] MEDS: CARISOPRODOL 350 MG TAB PO SCH ×2 (05:03→15:10)
[2022-07-29] MEDS: GABAPENTIN 300 MG CAP PO SCH ×2 (05:03→15:09)
[2022-07-29] MEDS: LEVOTHYROXINE SODIUM 100 MCG TAB PO SCH (06:01)
[2022-07-29] MEDS: LEVOTHYROXINE SODIUM 25 MCG TAB PO SCH (06:01)
[2022-07-29] MEDS: LEVOTHYROXINE SODIUM 50 MCG TAB PO SCH (06:01)
[2022-07-29] MEDS: SODIUM CHLORIDE 0.9% 1,000 ML IV SCH ×2 (08:00→15:15)
[2022-07-29 08:17] VITALS: BP 111/58
[2022-07-29] MEDS: PANTOPRAZOLE 40 MG/10 ML VIAL INJ IV SCH (10:33)
[2022-07-29] MEDS: HCTZ 25 MG TAB PO SCH (10:33)
[2022-07-29] MEDS: RANOLAZINE ER 500 MG TAB PO SCH (10:34)
[2022-07-29] MEDS: CLOPIDOGREL BISULFATE 75 MG TAB PO SCH (10:35)
[2022-07-29] MEDS: LISINOPRIL 10 MG TAB PO SCH (10:36)
[2022-07-29] MEDS: ENOXAPARIN SOD 120 MG/0.8 ML SYRINGE SC SCH (10:37)
[2022-07-29] MEDS: ASPirin-EC 81 mg tab PO SCH (10:38)
[2022-07-29 11:05] LABS: Basophils # (auto) 0 10 ^3/uL (0-0.2); Basophils % (auto) 0.2 % (0.0-2.0); Eosinophils # (auto) 0 10 ^3/uL (0-0.8); Eosinophils % (auto) 0.6 % (0.0-7.0); Hematocrit 29.4 % (36.0-46.0); Hemoglobin 9.5 g/dL (12.2-16.2); Lymphocytes # (auto) 0.9 10 ^3/uL (0.4-5.4); Lymphocytes % (auto) 36.4 % (10.0-50.0); Mean Corpuscular Hgb Conc. 32.5 g/dL (32.0-36.0); Mean Corpuscular Volume 101.5 fL (80.0-100.0); Monocytes # (auto) 0.3 10 ^3/uL (0-1.3); Monocytes % (auto) 13.9 % (0.0-12.0); Neutrophils # (auto) 1.2 10 ^3/uL (1.6-8.6); Neutrophils % (auto) 48.9 % (37.0-80.0); Nucleated Red Blood Cells % 0.1 %; Red Blood Cells 2.89 10^6/uL (4.0-5.20); Red Cell Distribution Width 15.7 % (11.8-14.3); White Blood Cell 2.4 10^3/uL (4.4-10.8)
[2022-07-29 14:17] VITALS: BP 113/67
[2022-07-29 16:50] VITALS: BP 113/67
== END 2022-07-29 17:30 | disposition left against medical advice (07) | DRG 282 ==
LOC: ER 08:14 → TELE 11:02 → TELE-WESTW 07-28 21:09
PROVIDERS: ADMIT Registered Nurse; ATTEND Family Medicine
PROC: 05HA33Z Insertion of Infusion Device into Left Brachial Vein, Percutaneous Approach (ICD-10-PCS; principal; 2022-07-27)
PROC: B54NZZA Ultrasonography of Left Upper Extremity Veins, Guidance (ICD-10-PCS; 2022-07-27)
DX: I21.4 Non-ST elevation (NSTEMI) myocardial infarction (principal); E78.5 Hyperlipidemia, unspecified; D63.8 Anemia in other chronic diseases classified elsewhere; E03.9 Hypothyroidism, unspecified; E66.01 Morbid (severe) obesity due to excess calories; F12.10 Cannabis abuse, uncomplicated; F17.210 Nicotine dependence, cigarettes, uncomplicated; M79.604 Pain in right leg; R79.89 Other specified abnormal findings of blood chemistry; Z53.29 Procedure and treatment not carried out because of patient's decision for other reasons; I11.0 Hypertensive heart disease with heart failure; I25.10 Atherosclerotic heart disease of native coronary artery without angina pectoris; J44.9 Chronic obstructive pulmonary disease, unspecified; I50.9 Heart failure, unspecified; Z82.49 Family history of ischemic heart disease and other diseases of the circulatory system; Z86.73 Personal history of transient ischemic attack (TIA), and cerebral infarction without residual deficits; Z71.51 Drug abuse counseling and surveillance of drug abuser; I25.2 Old myocardial infarction; Z86.74 Personal history of sudden cardiac arrest; Z98.51 Tubal ligation status; Z88.8 Allergy status to other drugs, medicaments and biological substances; Z90.49 Acquired absence of other specified parts of digestive tract; Z71.6 Tobacco abuse counseling; Z68.39 Body mass index [BMI] 39.0-39.9, adult
CPT/HCPCS: 36415; 71045; 71275; 80053; 80061; 80307; 81001; 83036; 83880; 84436; 84443; 84481; 84484; 85025; 85379; 85610; 85730; 87040; 87086; 87426; 93005; 93970; 99291; C9113; G0378; J2405

== ENCOUNTER 2023-01-24 13:03 | Inpatient (IN) | payer OTHER, MEDICAID ==
[~2023-01-24] VITALS: Ht 167.6 cm; Wt 115.6 kg
[~2023-01-24 13:03] MED LIST changes: +GABA-1250 PO; -GABA300C10 PO; -HYDR12.56 PO; +HYDR12.59 PO; -LISI-716 PO; +LISI10TA34 PO
[2023-01-24 13:30] VITALS: PULSE 55; RESP 13; O2SAT 100
[2023-01-24 13:54] LABS: Basophils # (auto) 0 10 ^3/uL (0-0.2); Eosinophils # (auto) 0 10 ^3/uL (0-0.8); Lymphocytes # (auto) 0.7 10 ^3/uL (0.4-5.4); Monocytes # (auto) 0.2 10 ^3/uL (0-1.3); Neutrophils # (auto) 1.3 10 ^3/uL (1.6-8.6); Nucleated Red Blood Cells % 0.2 %; White Blood Cell 2.2 10^3/uL (4.4-10.8)
[2023-01-24 13:58] LABS: Basophils % (auto) 0.9 % (0.0-2.0); Hematocrit 32.9 % (36.0-46.0); Hemoglobin 10.7 g/dL (12.2-16.2); Lymphocytes % (auto) 32.1 % (10.0-50.0); Mean Corpuscular Hemoglobin 34.1 pg (28.0-32.0); Mean Corpuscular Hgb Conc. 32.7 g/dL (32.0-36.0); Mean Corpuscular Volume 104.2 fL (80.0-100.0); Monocytes % (auto) 7.6 % (0.0-12.0); Neutrophils % (auto) 58.4 % (37.0-80.0); Red Blood Cells 3.16 10^6/uL (4.0-5.20); Red Cell Distribution Width 14.7 % (11.8-14.3)
[2023-01-24 14:20] LABS: Alanine Aminotransferase 21 U/L (7-40); Albumin 4.1 g/dL (3.2-4.8); Alkaline Phosphatase 56 U/L (46-116); Anion Gap 7.5 (5-15); Aspartate Aminotransferase 21 U/L (13-40); Bilirubin, Total 0.3 mg/dL (0.2-1.0); Blood Urea Nitrogen 10 mg/dL (9-23); Calcium 9.2 mg/dL (8.5-10.1); Carbon Dioxide 23.5 mmol/L (20-30); Chloride 109 mmol/L (98-107); Glucose 82 mg/dL (74-106); Potassium 3.7 mmol/L (3.5-5.1); Sodium 140 mmol/L (136-145); Total Protein 6.8 g/dL (5.7-8.2)
[2023-01-24] MEDS ORDERED: ACETAMINOPHEN 325 MG TAB PO PRN (17:45)
[2023-01-24] MEDS ORDERED: HYDROmorphone HCL 2 MG/ML VL/or syr IV PRN (17:45)
[2023-01-24] MEDS ORDERED: ATOR-47 PO (18:03)
[2023-01-24 18:30] VITALS: BP 114/73; PULSE 52; RESP 18; O2SAT 100
[2023-01-24] MEDS ORDERED: IPRATROPIUM BROM 0.5 MG/2.5ML INH SOL NEB PRN (18:30)
[2023-01-24] MEDS ORDERED: ALBUTEROL SULF 2.5 MG/0.5ML(0.5%) NEB SOLN NEB PRN (18:30)
[2023-01-24] MEDS: HYDROmorphone HCL 2 MG/ML VL/or syr IV PRN (19:38)
[2023-01-24 19:45] VITALS: PULSE 70; RESP 13; O2SAT 98
[2023-01-24] MEDS: RANOLAZINE ER 500 MG TAB PO SCH (21:45)
[2023-01-24] MEDS: hydrOXYchloroQUINE SULFATE 200 MG TAB PO SCH (21:45)
[2023-01-24] MEDS: HYDROcodone-ACET 5/325MG TAB PO PRN (22:55)
[2023-01-25] MEDS: HYDROmorphone HCL 2 MG/ML VL/or syr IV PRN ×3 (00:01→15:15)
[2023-01-25] MEDS: HYDROcodone-ACET 5/325MG TAB PO PRN ×2 (03:49→08:48)
[2023-01-25] MEDS: ASPirin-EC 81 mg tab PO SCH (08:48)
[2023-01-25] MEDS: CLOPIDOGREL BISULFATE 75 MG TAB PO SCH (08:48)
[2023-01-25] MEDS: RANOLAZINE ER 500 MG TAB PO SCH ×2 (08:48→22:33)
[2023-01-25] MEDS: hydrOXYchloroQUINE SULFATE 200 MG TAB PO SCH ×2 (08:48→22:33)
[2023-01-25] MEDS: LISINOPRIL 10 MG TAB PO SCH (08:49)
[2023-01-25] MEDS: ATORVASTATIN 20 MG TAB PO SCH (08:49)
[2023-01-25] MEDS: PANTOPRAZOLE 40 MG TAB PO SCH (08:49)
[2023-01-25] MEDS: LEVOTHYROXINE SODIUM 100 MCG TAB PO SCH (08:50)
[2023-01-25] MEDS: HCTZ 25 MG TAB PO SCH (08:50)
[2023-01-25 09:15] VITALS: O2SAT 100
[2023-01-25 09:58] LABS: Basophils # (auto) 0 10 ^3/uL (0-0.2); Eosinophils # (auto) 0 10 ^3/uL (0-0.8); Hemoglobin 10.1 g/dL (12.2-16.2); Lymphocytes # (auto) 0.9 10 ^3/uL (0.4-5.4); Monocytes # (auto) 0.3 10 ^3/uL (0-1.3); Monocytes % (auto) 8.2 % (0.0-12.0); Red Cell Distribution Width 14.6 % (11.8-14.3)
[2023-01-25 10:00] LABS: Basophils % (auto) 0.5 % (0.0-2.0); Eosinophils % (auto) 0.7 % (0.0-7.0); Hematocrit 30.9 % (36.0-46.0); Lymphocytes % (auto) 30.3 % (10.0-50.0); Mean Corpuscular Hemoglobin 33.3 pg (28.0-32.0); Mean Corpuscular Hgb Conc. 32.6 g/dL (32.0-36.0); Neutrophils # (auto) 1.8 10 ^3/uL (1.6-8.6); Neutrophils % (auto) 60.3 % (37.0-80.0); Nucleated Red Blood Cells % 0.1 %; Red Blood Cells 3.03 10^6/uL (4.0-5.20)
[2023-01-25 10:16] LABS: Alanine Aminotransferase 17 U/L (7-40); Alkaline Phosphatase 52 U/L (46-116); Anion Gap 6.2 (5-15); Aspartate Aminotransferase 21 U/L (13-40); BUN/Creatinine Ratio 9.3 (10.0-20.0); Bilirubin, Total 0.3 mg/dL (0.2-1.0); Blood Urea Nitrogen 10 mg/dL (9-23); Carbon Dioxide 25.8 mmol/L (20-30); Chloride 108 mmol/L (98-107); Glucose 88 mg/dL (74-106); Potassium 3.6 mmol/L (3.5-5.1); Sodium 140 mmol/L (136-145); Total Protein 6.8 g/dL (5.7-8.2)
[2023-01-25] MEDS ORDERED: FUROSEMIDE 100 MG/10ML VIAL IV ONE (16:45)
[2023-01-25 17:47] VITALS: PULSE 52; RESP 18; O2SAT 95
[2023-01-25] MEDS: OXYCODONE W/ ACETAMINOPHEN 5/325MG TABLET PO PRN ×2 (18:33→22:33)
[2023-01-25 20:00] VITALS: PULSE 46; PULSE 51
[2023-01-25 22:00] VITALS: BP 107/61; PULSE 60; RESP 17; TEMP 97.5; O2SAT 96
[2023-01-25 22:30] VITALS: O2SAT 98
[2023-01-26] MEDS: ZOLPIDEM TARTRATE 5 MG TAB PO ONE ×2 (00:15→00:30)
[2023-01-26] MEDS: OXYCODONE W/ ACETAMINOPHEN 5/325MG TABLET PO PRN ×2 (03:58→10:27)
[2023-01-26 05:00] VITALS: BP 127/70; PULSE 60; RESP 20; TEMP 97.4; O2SAT 100
[2023-01-26] MEDS: NITROGLYCERIN 0.4 MG SL TAB SL PRN ×3 (05:53→06:03)
[2023-01-26 08:20] VITALS: PULSE 49
[2023-01-26 09:17] VITALS: BP 93/59; PULSE 57; RESP 17; TEMP 97.9; O2SAT 99
[2023-01-26] MEDS: HCTZ 25 MG TAB PO SCH (10:00)
[2023-01-26] MEDS: LISINOPRIL 10 MG TAB PO SCH (10:00)
[2023-01-26] MEDS: ASPirin-EC 81 mg tab PO SCH (10:27)
[2023-01-26] MEDS: ATORVASTATIN 20 MG TAB PO SCH (10:28)
[2023-01-26] MEDS: hydrOXYchloroQUINE SULFATE 200 MG TAB PO SCH (10:28)
[2023-01-26] MEDS: CLOPIDOGREL BISULFATE 75 MG TAB PO SCH (10:28)
[2023-01-26] MEDS: LEVOTHYROXINE SODIUM 100 MCG TAB PO SCH (10:28)
[2023-01-26] MEDS: PANTOPRAZOLE 40 MG TAB PO SCH (10:28)
[2023-01-26] MEDS: RANOLAZINE ER 500 MG TAB PO SCH (10:28)
[2023-01-26 11:41] VITALS: O2SAT 96
[2023-01-26 13:00] VITALS: BP 97/50; PULSE 59; RESP 15; TEMP 98.9; O2SAT 97
[2023-01-26] MEDS ORDERED: HYDROmorphone HCL 2 MG/ML VL/or syr IV PRN (14:00)
[2023-01-26] MEDS ORDERED: OXYCODONE W/ ACETAMINOPHEN 5/325MG TABLET PO PRN (14:00)
[2023-01-26] MEDS ORDERED: RANO500T3 PO (15:38)
[2023-01-26 17:16] VITALS: BP 93/65; PULSE 76; RESP 18; TEMP 98.6; O2SAT 96
== END 2023-01-26 19:00 | disposition hospice, home (50) | DRG 206 ==
LOC: ER 13:03 → EDBD 13:03 → TELE 17:56 → TELE-WESTW 01-25 17:14
PROVIDERS: ADMIT Nurse Practitioner Family; ATTEND Internal Medicine
PROC: 05H933Z Insertion of Infusion Device into Right Brachial Vein, Percutaneous Approach (ICD-10-PCS; principal; 2023-01-25)
PROC: B54MZZA Ultrasonography of Right Upper Extremity Veins, Guidance (ICD-10-PCS; 2023-01-25)
DX: M94.0 Chondrocostal junction syndrome [Tietze] (principal); I48.19 Other persistent atrial fibrillation; I13.0 Hypertensive heart and chronic kidney disease with heart failure and stage 1 through stage 4 chronic kidney disease, or unspecified chronic kidney disease; Z68.41 Body mass index [BMI] 40.0-44.9, adult; E66.01 Morbid (severe) obesity due to excess calories; N18.9 Chronic kidney disease, unspecified; E03.9 Hypothyroidism, unspecified; I50.9 Heart failure, unspecified; I25.10 Atherosclerotic heart disease of native coronary artery without angina pectoris; E78.5 Hyperlipidemia, unspecified; J44.9 Chronic obstructive pulmonary disease, unspecified; D63.8 Anemia in other chronic diseases classified elsewhere; M79.7 Fibromyalgia; Z95.5 Presence of coronary angioplasty implant and graft; Z90.710 Acquired absence of both cervix and uterus; Z87.891 Personal history of nicotine dependence; Z86.74 Personal history of sudden cardiac arrest; Z86.73 Personal history of transient ischemic attack (TIA), and cerebral infarction without residual deficits; Z85.850 Personal history of malignant neoplasm of thyroid; Z79.01 Long term (current) use of anticoagulants; Z88.8 Allergy status to other drugs, medicaments and biological substances; Z90.49 Acquired absence of other specified parts of digestive tract
CPT/HCPCS: 36415; 71045; 71275; 80053; 83735; 83880; 84484; 85025; 85379; 93005; 93306; G0378

== ENCOUNTER 2023-05-25 06:13 | Inpatient (IN) | payer OTHER, MEDICAID ==
[~2023-05-25] VITALS: Ht 167.6 cm; Wt 114.9 kg
[~2023-05-25 06:13] MED LIST changes: -ALPR1TAB7 PO; +ATOR-47 PO; -ATOR10TA52 PO; -RANO10003 PO; +RANO500T3 PO
[2023-05-25 06:56] LABS: Basophils # (auto) 0 10 ^3/uL (0-0.2); Eosinophils # (auto) 0 10 ^3/uL (0-0.8); Hematocrit 34.1 % (36.0-46.0); Hemoglobin 11.2 g/dL (12.2-16.2); Mean Corpuscular Hgb Conc. 32.8 g/dL (32.0-36.0); Monocytes # (auto) 0.3 10 ^3/uL (0-1.3); Neutrophils # (auto) 1.4 10 ^3/uL (1.6-8.6)
[2023-05-25 07:01] LABS: Basophils % (auto) 0.5 % (0.0-2.0); Eosinophils % (auto) 0.6 % (0.0-7.0); Lymphocytes # (auto) 1.2 10 ^3/uL (0.4-5.4); Lymphocytes % (auto) 40.9 % (10.0-50.0); Mean Corpuscular Volume 103.5 fL (80.0-100.0); Monocytes % (auto) 8.7 % (0.0-12.0); Neutrophils % (auto) 49.3 % (37.0-80.0); Nucleated Red Blood Cells % 0.3 %; Red Blood Cells 3.29 10^6/uL (4.0-5.20); White Blood Cell 2.9 10^3/uL (4.4-10.8)
[2023-05-25 07:09] LABS: Alanine Aminotransferase 11 U/L (7-40); Albumin 4.4 g/dL (3.2-4.8); Alkaline Phosphatase 57 U/L (46-116); Anion Gap 4 (5-15); Aspartate Aminotransferase 16 U/L (13-40); BUN/Creatinine Ratio 11.8 (10.0-20.0); Bilirubin, Total 0.3 mg/dL (0.2-1.0); Blood Urea Nitrogen 13 mg/dL (9-23); Calcium 9.3 mg/dL (8.7-10.4); Carbon Dioxide 28 mmol/L (20-30); Chloride 107 mmol/L (98-107); Glucose 105 mg/dL (74-106); Magnesium 1.8 mg/dL (1.6-2.6); Potassium 3.3 mmol/L (3.5-5.1); Sodium 139 mmol/L (136-145); Total Protein 7.2 g/dL (5.7-8.2)
[2023-05-25 07:21] LABS: INR 0.99 (0.9-1.15); Partial Thromboplastin Time 31.6 SEC (24.5-34.5); Prothrombin Time 10.6 sec (9.3-11.8)
[2023-05-25] MEDS ORDERED: SODIUM CHLORIDE 0.9% 1,000 ML IV ONE (08:00)
[2023-05-25 08:27] VITALS: PULSE 68; RESP 19; O2SAT 98
[2023-05-25 09:03] LABS: Urine Bacteria FEW /hpf (None Seen); Urine Blood Negative /uL (Negative); Urine Clarity HAZY (Clear); Urine Color Yellow (Yellow); Urine Mucus FEW (None Seen); Urine Protein, UAD 1+ (Negative); Urine Specific Gravity 1.032 (1.001-1.035); Urine WBC 8 /hpf (0 - 5); Urine pH 6.5 (5.0-8.0)
[2023-05-25] MEDS ORDERED: MORPHINE SULFATE INJ 2 MG/ml SYRG IV PRN (09:30)
[2023-05-25] MEDS ORDERED: ACETAMINOPHEN 325 MG TAB PO PRN (09:30)
[2023-05-25] MEDS ORDERED: POTASSIUM EFFERVESENT TAB 25 MEQ PO ONE (09:30)
[2023-05-25] MEDS ORDERED: NITROGLYCERIN 0.4 MG SL TAB SL PRN (09:30)
[2023-05-25 09:48] LABS: Triglycerides 112 mg/dL (< 150)
[2023-05-25 09:49] LABS: LDL Cholesterol 120 mg/dL (< 100)
[2023-05-25 09:51] LABS: Cholesterol 199 mg/dL (< 200); HDL Cholesterol 43 mg/dL (40-59)
[2023-05-25 09:52] VITALS: PULSE 64; RESP 16; O2SAT 98
[2023-05-25] MEDS ORDERED: ONDANSETRON HCL 4 MG/2 ML VIAL IV PRN (10:15)
[2023-05-25] MEDS: MAGNESIUM SULFATE 1GM/100ML 100 ML IV SCH ×2 (10:20→11:44)
[2023-05-25] MEDS: hydrOXYchloroQUINE SULFATE 200 MG TAB PO SCH ×2 (10:21→21:03)
[2023-05-25] MEDS: CLOPIDOGREL BISULFATE 75 MG TAB PO SCH (10:21)
[2023-05-25] MEDS: ASPirin-EC 81 mg tab PO SCH (10:21)
[2023-05-25] MEDS: LISINOPRIL 10 MG TAB PO SCH (10:22)
[2023-05-25] MEDS: hydroCHLOROthiazide 25 MG TAB PO SCH (10:22)
[2023-05-25] MEDS: MORPHINE SULF 15mg ER tab PO SCH ×2 (10:23→21:02)
[2023-05-25] MEDS: PANTOPRAZOLE 40 MG TAB PO SCH (10:23)
[2023-05-25] MEDS: RANOLAZINE ER 500 MG TAB PO SCH ×2 (10:23→21:02)
[2023-05-25] MEDS: LEVOTHYROXINE SODIUM 100 MCG TAB PO SCH (10:30)
[2023-05-25 11:07] LABS: Free T3 1.34 pg/mL (2.3-4.2)
[2023-05-25 11:08] LABS: Free T4 (Free Thyroxine) 0.25 ng/dL (0.89-1.76)
[2023-05-25] MEDS: GABAPENTIN 300 MG CAP PO SCH ×2 (14:45→21:02)
[2023-05-25] MEDS: CARISOPRODOL 350 MG TAB PO SCH ×2 (14:45→21:02)
[2023-05-25] MEDS: HYDROcodone-ACET 10/325MG TAB PO PRN ×2 (17:26→21:26)
[2023-05-25 20:10] VITALS: PULSE 65; RESP 16; O2SAT 99
[2023-05-25] MEDS: ZOLPIDEM TARTRATE 5 MG TAB PO SCH (21:02)
[2023-05-25 22:00] VITALS: BP 122/67; PULSE 65; RESP 16; TEMP 98; O2SAT 99
[2023-05-26] VITALS (7 sets, daily range): BP systolic 101–135; BP diastolic 68–83; PULSE 57–78; RESP 18–21; TEMP 98.2–98.4; O2SAT 97–100
[2023-05-26] MEDS: HYDROcodone-ACET 10/325MG TAB PO PRN ×3 (01:26→12:58)
[2023-05-26] MEDS: CARISOPRODOL 350 MG TAB PO SCH ×3 (05:27→21:36)
[2023-05-26] MEDS: GABAPENTIN 300 MG CAP PO SCH ×3 (05:27→21:37)
[2023-05-26] MEDS: LEVOTHYROXINE SODIUM 100 MCG TAB PO SCH (06:33)
[2023-05-26 07:11] LABS: Albumin 3.8 g/dL (3.2-4.8); Alkaline Phosphatase 50 U/L (46-116); Anion Gap 3 (5-15); Aspartate Aminotransferase 17 U/L (13-40); Bilirubin, Total 0.2 mg/dL (0.2-1.0); Blood Urea Nitrogen 7 mg/dL (9-23); Carbon Dioxide 27 mmol/L (20-30); Chloride 107 mmol/L (98-107); Glucose 83 mg/dL (74-106); Potassium 3.8 mmol/L (3.5-5.1); Sodium 137 mmol/L (136-145); Total Protein 6.6 g/dL (5.7-8.2)
[2023-05-26 07:16] LABS: Basophils # (auto) 0 10 ^3/uL (0-0.2); Basophils % (auto) 0.7 % (0.0-2.0); Eosinophils # (auto) 0 10 ^3/uL (0-0.8); Eosinophils % (auto) 1.8 % (0.0-7.0); Hematocrit 34.2 % (36.0-46.0); Hemoglobin 10.3 g/dL (12.2-16.2); Lymphocytes # (auto) 0.8 10 ^3/uL (0.4-5.4); Lymphocytes % (auto) 39.1 % (10.0-50.0); Mean Corpuscular Hemoglobin 33.5 pg (28.0-32.0); Mean Corpuscular Volume 111.4 fL (80.0-100.0); Monocytes # (auto) 0.2 10 ^3/uL (0-1.3); Monocytes % (auto) 9.3 % (0.0-12.0); Neutrophils % (auto) 49.1 % (37.0-80.0); Nucleated Red Blood Cells % 0.5 %; Red Blood Cells 3.07 10^6/uL (4.0-5.20); Red Cell Distribution Width 17.5 % (11.8-14.3)
[2023-05-26 07:18] LABS: Alanine Aminotransferase < 9 U/L (7-40)
[2023-05-26] MEDS: MORPHINE SULF 15mg ER tab PO SCH ×2 (09:16→21:37)
[2023-05-26] MEDS: hydroCHLOROthiazide 25 MG TAB PO SCH (09:16)
[2023-05-26] MEDS: ASPirin-EC 81 mg tab PO SCH (09:18)
[2023-05-26] MEDS: hydrOXYchloroQUINE SULFATE 200 MG TAB PO SCH ×2 (09:18→21:37)
[2023-05-26] MEDS: LISINOPRIL 10 MG TAB PO SCH (09:18)
[2023-05-26] MEDS: CLOPIDOGREL BISULFATE 75 MG TAB PO SCH (09:18)
[2023-05-26] MEDS: PANTOPRAZOLE 40 MG TAB PO SCH (09:18)
[2023-05-26] MEDS: RANOLAZINE ER 500 MG TAB PO SCH (09:18)
[2023-05-26] MEDS: ATORVASTATIN 20 MG TAB PO SCH (09:19)
[2023-05-26 09:28] LABS: Platelet Estimate Decreased
[2023-05-26 09:29] LABS: Ovalocytes FEW; Tear Drop Cells FEW
[2023-05-26] MEDS ORDERED: cefTRIAXone 1GM/50ML D5W 50 ML IV ONE (10:00)
[2023-05-26] MEDS ORDERED: ENOXAPARIN SOD 100 MG/1 ML SYRINGE SC ONE (11:30)
[2023-05-26] MEDS ORDERED: METOPROLOL TARTRATE 25 MG TAB PO ONE (11:30)
[2023-05-26] MEDS ORDERED: AMIODARONE HCL 200 MG TAB PO ONE (15:15)
[2023-05-26] MEDS: OXYCODONE W/ ACETAMINOPHEN 5/325MG TABLET PO PRN (18:34)
[2023-05-26] MEDS: ZOLPIDEM TARTRATE 5 MG TAB PO SCH (21:36)
[2023-05-26] MEDS: ENOXAPARIN SOD 100 MG/1 ML SYRINGE SC SCH (21:38)
[2023-05-26 21:40] LABS: Amphetamine Screen, Urine Neg (NEGATIVE); Barbiturate Scree,Urine Neg (NEGATIVE); Benzodiazephine Screen, Urine Neg (NEGATIVE); Cocaine Screen, Urine Neg (NEGATIVE); Opiate Scree,Urine Pos (NEGATIVE); Phencyclidine Screen, Urine Neg (NEGATIVE)
[2023-05-26 21:41] LABS: Cannabinoid Screen, Urine Pos (NEGATIVE)
[2023-05-26] MEDS: METOPROLOL TARTRATE 25 MG TAB PO SCH (22:00)
[2023-05-27] VITALS (7 sets, daily range): BP systolic 116–135; BP diastolic 73–89; PULSE 59–66; RESP 16–20; TEMP 98.1–98.4; O2SAT 98–100
[2023-05-27] MEDS: OXYCODONE W/ ACETAMINOPHEN 5/325MG TABLET PO PRN ×3 (02:32→18:43)
[2023-05-27] MEDS: CARISOPRODOL 350 MG TAB PO SCH ×3 (06:09→23:21)
[2023-05-27] MEDS: LEVOTHYROXINE SODIUM 100 MCG TAB PO SCH (06:09)
[2023-05-27] MEDS: GABAPENTIN 300 MG CAP PO SCH ×3 (06:09→23:21)
[2023-05-27 07:08] LABS: Albumin 3.9 g/dL (3.2-4.8); Alkaline Phosphatase 49 U/L (46-116); Anion Gap 4 (5-15); Aspartate Aminotransferase 16 U/L (13-40); BUN/Creatinine Ratio 6.6 (10.0-20.0); Basophils # (auto) 0 10 ^3/uL (0-0.2); Basophils % (auto) 0.3 % (0.0-2.0); Blood Urea Nitrogen 8 mg/dL (9-23); Carbon Dioxide 27 mmol/L (20-30); Chloride 107 mmol/L (98-107); Eosinophils # (auto) 0 10 ^3/uL (0-0.8); Glucose 79 mg/dL (74-106); Hematocrit 36.8 % (36.0-46.0); Hemoglobin 11.6 g/dL (12.2-16.2); Lymphocytes # (auto) 0.8 10 ^3/uL (0.4-5.4); Lymphocytes % (auto) 43.9 % (10.0-50.0); Magnesium 2.2 mg/dL (1.6-2.6); Mean Corpuscular Hemoglobin 33.7 pg (28.0-32.0); Mean Corpuscular Hgb Conc. 31.5 g/dL (32.0-36.0); Mean Corpuscular Volume 107.1 fL (80.0-100.0); Monocytes # (auto) 0.2 10 ^3/uL (0-1.3); Monocytes % (auto) 11.9 % (0.0-12.0); Neutrophils # (auto) 0.8 10 ^3/uL (1.6-8.6); Neutrophils % (auto) 42.9 % (37.0-80.0); Nucleated Red Blood Cells % 0.2 %; Potassium 3.6 mmol/L (3.5-5.1); Red Blood Cells 3.43 10^6/uL (4.0-5.20); Red Cell Distribution Width 16.1 % (11.8-14.3); Sodium 138 mmol/L (136-145)
[2023-05-27 07:09] LABS: Bilirubin, Total 0.2 mg/dL (0.2-1.0); Total Protein 6.5 g/dL (5.7-8.2)
[2023-05-27 07:10] LABS: Alanine Aminotransferase 9 U/L (7-40)
[2023-05-27 07:13] LABS: White Blood Cell 1.8 10^3/uL (4.4-10.8)
[2023-05-27] MEDS ORDERED: ADENOSINE 94 MG in GIVE UN-DILUTED 0 ML IV ONE (08:00)
[2023-05-27] MEDS ORDERED: cefTRIAXone 1GM/50ML D5W 50 ML IV SCH (09:00)
[2023-05-27] MEDS ORDERED: REGADENOSON 0.4 MG/5 ML SYRG IV ONE (09:38)
[2023-05-27] MEDS: MORPHINE SULF 15mg ER tab PO SCH ×2 (09:41→23:21)
[2023-05-27] MEDS: CLOPIDOGREL BISULFATE 75 MG TAB PO SCH (10:00)
[2023-05-27] MEDS: ATORVASTATIN 20 MG TAB PO SCH (10:00)
[2023-05-27] MEDS: hydrOXYchloroQUINE SULFATE 200 MG TAB PO SCH ×2 (10:00→23:21)
[2023-05-27] MEDS: PANTOPRAZOLE 40 MG TAB PO SCH (10:00)
[2023-05-27] MEDS: METOPROLOL TARTRATE 25 MG TAB PO SCH ×2 (10:00→23:21)
[2023-05-27] MEDS ORDERED: AMIODARONE HCL 200 MG TAB PO SCH (10:00)
[2023-05-27] MEDS: hydroCHLOROthiazide 25 MG TAB PO SCH (10:00)
[2023-05-27] MEDS: LISINOPRIL 10 MG TAB PO SCH (10:00)
[2023-05-27] MEDS: ENOXAPARIN SOD 100 MG/1 ML SYRINGE SC SCH ×2 (10:00→22:00)
[2023-05-27 10:47] LABS: Folate (Folic Acid) 8.65 ng/mL (>5.38)
[2023-05-27 10:48] LABS: Ferritin 187.5 ng/mL (10-291)
[2023-05-27] MEDS: AZITHROMYCIN 250 MG TAB PO SCH (14:15)
[2023-05-27] MEDS ORDERED: FLUCONAZOLE 200MG/100ML 100 ML IV ONE (14:30)
[2023-05-27] MEDS ORDERED: FLUCONAZOLE 100 MG TAB PO ONE (15:00)
[2023-05-27] MEDS: FERROUS SULFATE 325mg EC TAB PO SCH (18:00)
[2023-05-27] MEDS ORDERED: fentaNYL CITRATE 100 MCG/2 ML VL ONE (20:27)
[2023-05-27] MEDS ORDERED: ANGIOMAX 250 MG VIAL IV ONE (20:27)
[2023-05-27] MEDS ORDERED: VERAPAMIL 2.5MG/ML INJ 2ML VIAL IV ONE (20:27)
[2023-05-27] MEDS ORDERED: HEPARIN SODIUM (PORCINE) 5000 UNITS/ML 1ML VIAL ONE (20:27)
[2023-05-27] MEDS ORDERED: MIDAZOLAM HCL 2MG/2ML 2ml VIAL (1mg/ml) ONE (20:28)
[2023-05-27] MEDS ORDERED: LIDOCAINE 2%HCL (LOCAL ANESTH.) INJ 20ML MDV ONE (20:28)
[2023-05-27] MEDS: SODIUM CHL 0.9% 0 ML ONE (20:28)
[2023-05-28] VITALS (7 sets, daily range): BP systolic 100–109; BP diastolic 65–82; PULSE 62–75; RESP 17–20; TEMP 97.8–99; O2SAT 90–100
[2023-05-28] MEDS: ZOLPIDEM TARTRATE 5 MG TAB PO SCH ×2 (00:30→22:58)
[2023-05-28] MEDS: OXYCODONE W/ ACETAMINOPHEN 5/325MG TABLET PO PRN ×3 (03:19→18:24)
[2023-05-28 06:13] LABS: Basophils # (auto) 0 10 ^3/uL (0-0.2); Basophils % (auto) 0.5 % (0.0-2.0); Eosinophils # (auto) 0 10 ^3/uL (0-0.8); Eosinophils % (auto) 0.9 % (0.0-7.0); Hematocrit 30.2 % (36.0-46.0); Lymphocytes # (auto) 0.8 10 ^3/uL (0.4-5.4); Lymphocytes % (auto) 33.6 % (10.0-50.0); Mean Corpuscular Hemoglobin 34.1 pg (28.0-32.0); Mean Corpuscular Hgb Conc. 32.9 g/dL (32.0-36.0); Mean Corpuscular Volume 103.5 fL (80.0-100.0); Monocytes # (auto) 0.3 10 ^3/uL (0-1.3); Neutrophils # (auto) 1.3 10 ^3/uL (1.6-8.6); Nucleated Red Blood Cells % 0.4 %; Red Blood Cells 2.92 10^6/uL (4.0-5.20); Red Cell Distribution Width 15.9 % (11.8-14.3); White Blood Cell 2.4 10^3/uL (4.4-10.8)
[2023-05-28] MEDS: CARISOPRODOL 350 MG TAB PO SCH ×3 (06:13→21:47)
[2023-05-28] MEDS: LEVOTHYROXINE SODIUM 100 MCG TAB PO SCH (06:13)
[2023-05-28] MEDS: GABAPENTIN 300 MG CAP PO SCH ×3 (06:13→21:36)
[2023-05-28 06:30] LABS: Alanine Aminotransferase 10 U/L (7-40); Albumin 3.9 g/dL (3.2-4.8); Alkaline Phosphatase 49 U/L (46-116); Anion Gap 2 (5-15); Aspartate Aminotransferase 13 U/L (13-40); Blood Urea Nitrogen 9 mg/dL (9-23); Carbon Dioxide 28 mmol/L (20-30); Chloride 108 mmol/L (98-107); Glucose 87 mg/dL (74-106); Magnesium 2.1 mg/dL (1.6-2.6); Potassium 3.2 mmol/L (3.5-5.1); Sodium 138 mmol/L (136-145)
[2023-05-28 06:31] LABS: Bilirubin, Total 0.2 mg/dL (0.2-1.0); Total Protein 6.4 g/dL (5.7-8.2)
[2023-05-28] MEDS: POTASSIUM CHL 20 Meq TABLET PO SCH ×2 (09:07→11:56)
[2023-05-28] MEDS: AZITHROMYCIN 250 MG TAB PO SCH (09:07)
[2023-05-28] MEDS: ENOXAPARIN SOD 100 MG/1 ML SYRINGE SC SCH (09:07)
[2023-05-28] MEDS: CLOPIDOGREL BISULFATE 75 MG TAB PO SCH (09:07)
[2023-05-28] MEDS: hydrOXYchloroQUINE SULFATE 200 MG TAB PO SCH ×2 (09:08→21:38)
[2023-05-28] MEDS: PANTOPRAZOLE 40 MG TAB PO SCH (09:08)
[2023-05-28] MEDS: ATORVASTATIN 20 MG TAB PO SCH (09:08)
[2023-05-28] MEDS: FERROUS SULFATE 325mg EC TAB PO SCH ×2 (09:08→15:59)
[2023-05-28] MEDS: METOPROLOL TARTRATE 25 MG TAB PO SCH ×2 (09:11→21:40)
[2023-05-28] MEDS: LISINOPRIL 10 MG TAB PO SCH (09:11)
[2023-05-28] MEDS: hydroCHLOROthiazide 25 MG TAB PO SCH (09:12)
[2023-05-28] MEDS: MORPHINE SULF 15mg ER tab PO SCH ×2 (09:12→21:37)
[2023-05-28 09:19] LABS: Rapid Strep A Screen-Throat Negative
[2023-05-28] MEDS ORDERED: FLUCONAZOLE 200MG/100ML 100 ML IV SCH (10:00)
[2023-05-28] MEDS ORDERED: FLUCONAZOLE 100 MG TAB PO SCH (10:00)
[2023-05-28] MEDS: APIXABAN 5 MG TAB PO SCH (21:38)
[2023-05-29] MEDS: OXYCODONE W/ ACETAMINOPHEN 5/325MG TABLET PO PRN ×4 (00:42→20:32)
[2023-05-29 05:07] VITALS: BP 119/63; PULSE 66; RESP 18; TEMP 98.6; O2SAT 100
[2023-05-29] MEDS: GABAPENTIN 300 MG CAP PO SCH ×3 (05:53→22:33)
[2023-05-29] MEDS: CARISOPRODOL 350 MG TAB PO SCH ×3 (05:53→22:32)
[2023-05-29] MEDS: LEVOTHYROXINE SODIUM 100 MCG TAB PO SCH (05:55)
[2023-05-29 06:22] LABS: Basophils # (auto) 0 10 ^3/uL (0-0.2); Basophils % (auto) 0.7 % (0.0-2.0); Eosinophils # (auto) 0 10 ^3/uL (0-0.8); Hemoglobin 9.7 g/dL (12.2-16.2); Lymphocytes # (auto) 0.9 10 ^3/uL (0.4-5.4); Monocytes # (auto) 0.3 10 ^3/uL (0-1.3); Neutrophils # (auto) 1.3 10 ^3/uL (1.6-8.6); Nucleated Red Blood Cells % 0.1 %
[2023-05-29 06:24] LABS: Eosinophils % (auto) 0.6 % (0.0-7.0); Hematocrit 30.1 % (36.0-46.0); Lymphocytes % (auto) 35.3 % (10.0-50.0); Mean Corpuscular Hemoglobin 33.6 pg (28.0-32.0); Mean Corpuscular Hgb Conc. 32.3 g/dL (32.0-36.0); Mean Corpuscular Volume 104.2 fL (80.0-100.0); Monocytes % (auto) 12.7 % (0.0-12.0); Neutrophils % (auto) 50.7 % (37.0-80.0); Red Blood Cells 2.88 10^6/uL (4.0-5.20); Red Cell Distribution Width 16.2 % (11.8-14.3); White Blood Cell 2.6 10^3/uL (4.4-10.8)
[2023-05-29 06:41] LABS: Alkaline Phosphatase 46 U/L (46-116); Anion Gap 2 (5-15); BUN/Creatinine Ratio 8.5 (10.0-20.0); Blood Urea Nitrogen 11 mg/dL (9-23); Calcium 9.3 mg/dL (8.7-10.4); Carbon Dioxide 28 mmol/L (20-30); Chloride 109 mmol/L (98-107); Glucose 81 mg/dL (74-106); Potassium 4.4 mmol/L (3.5-5.1); Sodium 139 mmol/L (136-145)
[2023-05-29 06:42] LABS: Aspartate Aminotransferase 12 U/L (13-40)
[2023-05-29 06:43] LABS: Bilirubin, Total 0.3 mg/dL (0.2-1.0); Total Protein 6.5 g/dL (5.7-8.2)
[2023-05-29 07:01] LABS: Alanine Aminotransferase < 9 U/L (7-40)
[2023-05-29 07:23] LABS: Magnesium 2.1 mg/dL (1.6-2.6)
[2023-05-29 08:00] VITALS: BP 102/81; PULSE 69; PULSE 72; RESP 17; TEMP 97.9; O2SAT 92
[2023-05-29] MEDS ORDERED: ASPirin 81 mg TAB PO SCH (10:00)
[2023-05-29] MEDS: APIXABAN 5 MG TAB PO SCH ×2 (10:14→22:34)
[2023-05-29] MEDS: MORPHINE SULF 15mg ER tab PO SCH ×2 (10:14→22:34)
[2023-05-29] MEDS: AZITHROMYCIN 250 MG TAB PO SCH (10:14)
[2023-05-29] MEDS: FERROUS SULFATE 325mg EC TAB PO SCH ×2 (10:14→17:52)
[2023-05-29] MEDS: FLUCONAZOLE 100 MG TAB PO SCH (10:14)
[2023-05-29] MEDS: CLOPIDOGREL BISULFATE 75 MG TAB PO SCH (10:14)
[2023-05-29] MEDS: hydroCHLOROthiazide 25 MG TAB PO SCH (10:15)
[2023-05-29] MEDS: LISINOPRIL 10 MG TAB PO SCH (10:15)
[2023-05-29] MEDS: hydrOXYchloroQUINE SULFATE 200 MG TAB PO SCH ×2 (10:16→22:32)
[2023-05-29] MEDS: METOPROLOL TARTRATE 25 MG TAB PO SCH ×2 (10:16→22:34)
[2023-05-29] MEDS ORDERED: IOHEXOL 300 MG/ML 100ML BOTTLE IJ ONE (10:53)
[2023-05-29 13:13] VITALS: BP 128/65; PULSE 73; RESP 17; TEMP 98.7; O2SAT 100
[2023-05-29] MEDS ORDERED: KETOROLAC TROMETH 30 MG/ML 1ML VIAL IV ONE ×2 (16:30→16:45)
[2023-05-29 17:06] VITALS: BP 113/75; PULSE 67; RESP 17; TEMP 98.1; O2SAT 90
[2023-05-29 20:00] VITALS: PULSE 54; PULSE 65; RESP 18; O2SAT 99
[2023-05-29 22:00] VITALS: BP 128/54; PULSE 58; RESP 18; TEMP 98.1; O2SAT 99
[2023-05-29] MEDS: ZOLPIDEM TARTRATE 5 MG TAB PO SCH (22:35)
[2023-05-30] MEDS: OXYCODONE W/ ACETAMINOPHEN 5/325MG TABLET PO PRN ×2 (03:58→10:11)
[2023-05-30 05:06] VITALS: BP 93/65; PULSE 84; RESP 18; TEMP 98.5; O2SAT 94
[2023-05-30 06:02] LABS: Basophils # (auto) 0 10 ^3/uL (0-0.2); Eosinophils # (auto) 0 10 ^3/uL (0-0.8); Hemoglobin 9.5 g/dL (12.2-16.2); Red Blood Cells 2.88 10^6/uL (4.0-5.20); White Blood Cell 2.2 10^3/uL (4.4-10.8)
[2023-05-30] MEDS: GABAPENTIN 300 MG CAP PO SCH (06:03)
[2023-05-30] MEDS: CARISOPRODOL 350 MG TAB PO SCH (06:03)
[2023-05-30] MEDS: LEVOTHYROXINE SODIUM 100 MCG TAB PO SCH (06:04)
[2023-05-30 06:06] LABS: Basophils % (auto) 0.6 % (0.0-2.0); Eosinophils % (auto) 1.3 % (0.0-7.0); Hematocrit 29.5 % (36.0-46.0); Lymphocytes # (auto) 0.9 10 ^3/uL (0.4-5.4); Lymphocytes % (auto) 42.3 % (10.0-50.0); Mean Corpuscular Hgb Conc. 32.2 g/dL (32.0-36.0); Mean Corpuscular Volume 102.6 fL (80.0-100.0); Monocytes # (auto) 0.3 10 ^3/uL (0-1.3); Monocytes % (auto) 13.2 % (0.0-12.0); Neutrophils # (auto) 0.9 10 ^3/uL (1.6-8.6); Neutrophils % (auto) 42.6 % (37.0-80.0); Nucleated Red Blood Cells % 0.1 %; Red Cell Distribution Width 16.2 % (11.8-14.3)
[2023-05-30 06:14] LABS: Albumin 3.8 g/dL (3.2-4.8); Alkaline Phosphatase 45 U/L (46-116); Anion Gap 6 (5-15); Aspartate Aminotransferase 12 U/L (13-40); Blood Urea Nitrogen 12 mg/dL (9-23); Calcium 8.8 mg/dL (8.7-10.4); Carbon Dioxide 25 mmol/L (20-30); Chloride 106 mmol/L (98-107); Glucose 85 mg/dL (74-106); Magnesium 2.1 mg/dL (1.6-2.6); Sodium 137 mmol/L (136-145)
[2023-05-30 06:15] LABS: Bilirubin, Total 0.2 mg/dL (0.2-1.0); Total Protein 6.5 g/dL (5.7-8.2)
[2023-05-30 06:28] LABS: Alanine Aminotransferase < 9 U/L (7-40)
[2023-05-30 08:07] VITALS: PULSE 88
[2023-05-30 08:30] VITALS: BP 104/65; PULSE 68; RESP 16; TEMP 98.6; O2SAT 96
[2023-05-30] MEDS: FERROUS SULFATE 325mg EC TAB PO SCH (08:41)
[2023-05-30 09:00] VITALS: BP 104/65; PULSE 86; RESP 16; TEMP 98.6; O2SAT 96
[2023-05-30] MEDS: METOPROLOL TARTRATE 25 MG TAB PO SCH (10:00)
[2023-05-30] MEDS: FLUCONAZOLE 100 MG TAB PO SCH (10:05)
[2023-05-30] MEDS: AZITHROMYCIN 250 MG TAB PO SCH (10:05)
[2023-05-30] MEDS: CLOPIDOGREL BISULFATE 75 MG TAB PO SCH (10:05)
[2023-05-30] MEDS: APIXABAN 5 MG TAB PO SCH (10:06)
[2023-05-30] MEDS: hydrOXYchloroQUINE SULFATE 200 MG TAB PO SCH (10:07)
[2023-05-30] MEDS: LISINOPRIL 10 MG TAB PO SCH (10:10)
[2023-05-30] MEDS: hydroCHLOROthiazide 25 MG TAB PO SCH (10:11)
[2023-05-30 12:50] VITALS: BP 100/65; PULSE 79; RESP 18; TEMP 98.1; O2SAT 100
== END 2023-05-30 12:30 | disposition home or self-care (01) | DRG 281 ==
LOC: ER 06:13 → TELE 09:20 → TELE-WESTW 16:40
PROVIDERS: ADMIT Internal Medicine; ATTEND Internal Medicine
PROC: 4A023N7 Measurement of Cardiac Sampling and Pressure, Left Heart, Percutaneous Approach (ICD-10-PCS; principal; 2023-05-27)
PROC: B211YZZ Fluoroscopy of Multiple Coronary Arteries using Other Contrast (ICD-10-PCS; 2023-05-27)
DX: I21.4 Non-ST elevation (NSTEMI) myocardial infarction (principal); D61.818 Other pancytopenia; I13.0 Hypertensive heart and chronic kidney disease with heart failure and stage 1 through stage 4 chronic kidney disease, or unspecified chronic kidney disease; Z68.41 Body mass index [BMI] 40.0-44.9, adult; N39.0 Urinary tract infection, site not specified; I50.32 Chronic diastolic (congestive) heart failure; E03.9 Hypothyroidism, unspecified; E83.42 Hypomagnesemia; E87.6 Hypokalemia; N18.31 Chronic kidney disease, stage 3a; E78.5 Hyperlipidemia, unspecified; I48.0 Paroxysmal atrial fibrillation; M32.9 Systemic lupus erythematosus, unspecified; M79.7 Fibromyalgia; J44.9 Chronic obstructive pulmonary disease, unspecified; D53.9 Nutritional anemia, unspecified; J02.9 Acute pharyngitis, unspecified; R16.0 Hepatomegaly, not elsewhere classified; I25.10 Atherosclerotic heart disease of native coronary artery without angina pectoris; K76.0 Fatty (change of) liver, not elsewhere classified; K29.90 Gastroduodenitis, unspecified, without bleeding; E66.01 Morbid (severe) obesity due to excess calories; M06.9 Rheumatoid arthritis, unspecified; I25.2 Old myocardial infarction; Z90.710 Acquired absence of both cervix and uterus; Z90.49 Acquired absence of other specified parts of digestive tract; Z95.5 Presence of coronary angioplasty implant and graft; Z86.73 Personal history of transient ischemic attack (TIA), and cerebral infarction without residual deficits; Z79.899 Other long term (current) drug therapy; Z79.02 Long term (current) use of antithrombotics/antiplatelets; Z87.891 Personal history of nicotine dependence; Z88.8 Allergy status to other drugs, medicaments and biological substances; Z82.49 Family history of ischemic heart disease and other diseases of the circulatory system; Z83.42 Family history of familial hypercholesterolemia; Z80.0 Family history of malignant neoplasm of digestive organs
CPT/HCPCS: 36415; 71045; 71260; 74177; 78452; 80053; 80061; 80307; 80320; 81001; 82040; 82607; 82728; 82746; 83036; 83540; 83550; 83735; 83880; 84439; 84443; 84481; 84484; 85025; 85045; 85379; 85610; 85730; 87070; 87086; 87088; 87186; 87880; 93005; 93017; 93458; 96361; 96365; 96375; 99152; G0378; J0153; J1450; J1885; J2250; J2405